=== PATIENT | female | born 1975 | race Caucasian/White ===

== ENCOUNTER 2019-05-05 21:34 | Emergency (ER) | payer MEDICARE, MEDICAID, SELFPAY ==
[2019-05-05 21:50] VITALS: PULSE 98; RESP 18; TEMP 36.6; O2SAT 93; BMI 43.6
--- NOTE | 2019-05-05 21:53 | ECG_ITS ---
Measurements Intervals [place] Rate: 88 P: 37 AL: 162 QRS: 59 QRSD: 85 T: 22 QT: 349 QTc: 424 SINUS RHYTHM NONSPECIFIC T-WAVE ABNORMALITY Compared to ECG 05/02/2017 18:27:14 No significant changes Electronically Signed On 05-06-2019 20:11:02 SEQUINS WINDER by Nakia Cortés M.D. [id number]
--- NOTE | 2019-05-05 22:25 | ED_ITS ---
Entered by Natalya Moon, acting as scribe for Carole Thakur MD May 05, 2019 21:34 HPI - SOB/Dyspnea General: Chief Complaint: Shortness of Breath/Dyspnea Stated Complaint: CHEST TIGHTNESS/SOB Time Seen by Provider: 05/05/19 22:20 Source: patient and EMS Mode of arrival: EMS Limitations: no limitations History of Present Illness: HPI Narrative: 44 y/o female presents to the ED with complaint of SOB and cough. Pt states she has had a cough since Saturday. She was seen by her PCP earlier today and given abx. MD elicited complaint: shortness of breath and cough Onset (ago): hour(s) Timing: constant Severity: mild Exacerbating factors: movement and coughing Associated symptoms: Deny abdominal pain, fever(s), nausea, polyuria or vomiting Review of Systems Const: Denies: fever or chills Eyes: Denies: change in vision ENMT: Denies: throat pain or mouth pain Resp: Reports: shortness of breath and non-productive cough GI: Denies: abdominal pain, nausea, vomiting or diarrhea : Denies: difficulty urinating Musc: Denies: back pain or joint pain Skin/Breast: Denies: rash Neuro: Denies: headache or behavioral changes Psych: Denies: depression Endo: Denies: excessive urination Fredis/Lymph: Denies: easy bruising All/Imm: Denies: hives PFSH ED PFSH: Statuses (acute, chronic, etc) shown below reflect problem list status as previously entered and may not be historically accurate Medical History (Updated 05/05/19 @ 23:12 by Carole Thakur MD) Bipolar disorder, in partial remission, most recent episode depressed (Acute) Nicotine dependence, cigarettes, uncomplicated (Acute) Post-traumatic stress disorder, chronic (Acute) Social History Smoking and tobacco status: current every day smoker Physical Exam Const: COMMON NORMALS: no apparent distress, oriented x3 and healthy appearing HENMT: COMMON NORMALS: normocephalic and external nose normal HEAD & SCALP: normocephalic NOSE: external nose normal Eye: COMMON NORMALS: PERRL PUPIL: Yes PERRL Neck/C-Spine: COMMON NORMALS: full ROM and no lymphadenopathy Chest: COMMONS NORMALS: inspection of chest normal Resp: COMMON NORMALS: normal respiratory effort and no use of accessory mu scles AUSCULTATION: wheezes (bilateral) Cardio: COMMON NORMALS: regular rate and regular rhythm RATE: regular rate RHYTHM: regular rhythm GI: COMMON NORMALS: normal to inspection, nondistended, normoactive bowel sounds, soft to palpation, non-tender and no masses PALPATION: Yes soft Back/Pelvis: THORACIC SPINE/UPPER BACK: Yes normal to inspection Extremity: COMMON NORMALS: normal to inspection, full ROM and normal capillary refill Neuro: COMMON NORMALS: oriented x3 Psych: COMMON NORMALS: mental status grossly normal and cooperative Skin: COMMON NORMALS: no rashes or lesions noted GENERAL SKIN EXAM: no rashes or lesions noted Course Vital Signs: Vital signs: Vital Signs Temperature 97.9 F 05/05/19 21:50 Pulse Rate 98 05/05/19 21:50 Respiratory Rate 18 05/05/19 21:50 Pulse Oximetry 93 05/05/19 21:50 MDM - SOB/Dyspnea MDM Narrative: Medical decision making narrative: Patient presents here with right lower lobe pneumonia. Patient chest pain is likely from this. Patient's white count here is normal and she is in no distress. We will place her on steroids along with doxycycline. She is stable for discharge and is to follow- up with her primary care doctor in 2 to 4 days return to the ER if worsening. Lab Data: Labs: Lab Results 05/05/19 05/05/19 05/05/19 Range/Units 22:30 22:30 22:30 WBC 7.4 (4.0-10.0) 10^3/ uL RBC 4.86 (4.1-5.3) 10^6/u L Hgb 14.1 (11.5-15.3) g/dL Hct 42.9 (37.0-47.0) % MCV 88.3 (81-99) fL MCH 29.0 (28.0-34.0) pg MCHC 32.9 (30.0-36.0) g/dL RDW 14.1 (12.1-15.1) % Plt Count 238 (130-400) 10^3/c mm MPV 9.5 (7.4-10.4) fL Neut % (Auto) 73.2 % Lymph % (Auto) 16.8 % [place] % (Auto) 9.3 % Eos % (Auto) 0.3 % Baso % (Auto) 0.1 % Neut # (Auto) 5.4 (1.8-7.7) 10^3/u L Lymph # (Auto) 1.2 (0.8-4.8) 10^3/u L [place] # (Auto) 0.7 (0.2-0.9) 10^3/u L Eos # (Auto) 0.0 (0.0-0.8) 10^3/u L Baso # (Auto) 0.0 (0.0-0.1) 10^3/u L Nucleated RBC % (a uto) 0 % Nucleated RBCs # 0.0 /100WBC Sodium 134 L (136-145) mmol/L Potassium 3.6 (3.5-5.1) mmol/L Chloride 97 L (98-107) mmol/L Carbon Dioxide 21 L (22-29) mmol/L Anion Gap 19.6 H (5-19) BUN 12 (6-20) mg/dL Creatinine 0.8 (0.5-0.9) mg/dL GFR Calculation 77.9 L (90-130) mL/min Glucose 113 H (74-109) mg/dL Calcium 9.6 (8.6-10.0) mg/Dl Total Bilirubin 0.2 (0.15-1.2) mg/dL AST 49 H (0-32) U/L ALT 43 H (0-33) U/L Alkaline Phosphata se 101 (35-105) IU/L Troponin T Baselin e 6 (0-10) ng/mL Total Protein 7.4 (6.6-8.7) g/dL Albumin 4.4 (3.5-5.2) g/dL Globulin 3.0 (1.3-4.6) g/dL Imaging Data^: CXR: Attestation: I personally reviewed and interpreted this imaging study as follows: My impression: rll pneumonia EKG Data^: EKG 1: Attestation: I personally reviewed and interpreted this EKG as follows: EKG Interpretation Date: 05/05/19 EKG interpretation time: 21:55 Interpretation: nsr hr [address] or t wave abnormalities qrs 85 qtc 395 EKG 2: Attestation: I personally reviewed and interpreted this EKG as follows: EKG Interpretation Date: 05/05/19 EKG interpretation time: 23:22 Interpretation: nsr hr [address] or t wave abnormalities qrs 80 qtc 402 Discharge Plan Discharge Patient Disposition: Home, Self-Care Clinical Impression: Community acquired pneumonia Qualifiers: Laterality: right Lung location: lower lobe of lung Qualified Code(s): J18.9 - Pneumonia, unspecified organism Condition: Stable Prescriptions: New prednisone 50 mg tablet 50 mg PO DAILY Qty: 5 RF: 0 doxycycline hyclate 100 mg tablet 100 mg PO BID 10 Days Qty: 20 RF: 0 No Action bupropion HCl [Wellbutrin XL] 300 mg tablet extended release 24 hr 300 mg PO QAM Qty: 30 RF: 2 buspirone 30 mg tablet 30 mg PO BID Qty: 60 RF: 2 hydroxyzine HCl 50 mg tablet 50 mg PO .Qhs Qty: 30 RF: 2 bupropion HCl [Wellbutrin XL] 150 mg tablet extended release 24 hr 150 mg PO QAM Qty: 30 RF: 2 escitalopram oxalate [Lexapro] 20 mg tablet 20 mg PO DAILY Qty: 30 RF: 2 clonazepam 1 mg tablet 1 mg PO BID PRN (Reason: anxiety) Qty: 60 RF: 2 Discharge Orders: Discharge Order (Routine); Ordered 05/05/19 Ordered By: Carole Thakur Referrals: Nneka Wiley MD [Primary Care Provider] - 4-7 days Discharge Diet: Advance as tolerated Discharge Activity: Resume usual activity Patient Instructions: Bacterial Pneumonia (ED) Coding Level of Care Code ED Title Coordinator for Chg Fwd Exam Problem Focused The documentation recorded by the Red christensen Ashley, accurately reflects the service I personally performed and the decisions made by Ofe arcos Korby, MD May 05, 2019 21:34
--- NOTE | 2019-05-05 22:49 | XR_ITS ---
WS: [id number] CHEST XRAY TECHNIQUE: Portable chest. CLINICAL INFORMATION: cough COMPARISON: May 02, 2017 FINDINGS: Heart: Normal cardiac silhouette. Lungs: Lungs are clear. No consolidation or pleural effusion. Bones: Normal visualized bony structures. XR/XR chest 1V portable [id number] IMPRESSION: No acute chest findings
[2019-05-05 22:54] LABS: Basophils % 0.1 %; Eosinophils % 0.3 %; Hematocrit 42.9 % (37.0-47.0); Hemoglobin 14.1 g/dL (11.5-15.3); Lymphocytes # 1.2 10^3/uL (0.8-4.8); Lymphocytes % 16.8 %; Mean Corpuscular HGB Conc 32.9 g/dL (30.0-36.0); Mean Corpuscular Volume 88.3 fL (81-99); Mean Platelet Volume 9.5 fL (7.4-10.4); Monocytes # 0.7 10^3/uL (0.2-0.9); Monocytes % 9.3 %; Neutrophils # 5.4 10^3/uL (1.8-7.7); Neutrophils % 73.2 %; Nucleated Red Blood Cells % 0 %; Platelet Count 238 10^3/cmm (130-400); Red Blood Count 4.86 10^6/uL (4.1-5.3); Red Cell Distribution Width 14.1 % (12.1-15.1); White Blood Count 7.4 10^3/uL (4.0-10.0)
[2019-05-05 22:59] LABS: Alanine Aminotransferase 43 U/L (0-33); Albumin Level 4.4 g/dL (3.5-5.2); Alkaline Phosphatase 101 IU/L (35-105); Anion Gap 19.6 (5-19); Aspartate Amino Transferase 49 U/L (0-32); Blood Urea Nitrogen 12 mg/dL (6-20); Calcium 9.6 mg/Dl (8.6-10.0); Carbon Dioxide 21 mmol/L (22-29); Chloride 97 mmol/L (98-107); Glomerular Filtration Rate 77.9 mL/min (90-130); Glucose 113 mg/dL (74-109); Potassium 3.6 mmol/L (3.5-5.1); Sodium 134 mmol/L (136-145); Total Bilirubin 0.2 mg/dL (0.15-1.2); Total Protein 7.4 g/dL (6.6-8.7)
[2019-05-05 23:00] LABS: Troponin(5th) Baseline 6 ng/mL (0-10)
[2019-05-05 23:28] VITALS: BP 164/81; PULSE 70; RESP 18; O2SAT 98
[2019-05-05] MEDS: ipratropium-albuterol 3 mL Neb INHALATION (23:38)
[2019-05-05 23:39] VITALS: PULSE 90; RESP 18; O2SAT 98
--- NOTE | 2019-05-06 01:58 | ECG_ITS ---
Measurements Intervals [place] Rate: 84 P: 39 PA: 166 QRS: 62 QRSD: 80 T: 40 QT: 361 QTc: 427 SINUS RHYTHM NONSPECIFIC T-WAVE ABNORMALITY Compared to ECG 05/02/2017 18:27:14 No significant changes Electronically Signed On 05-06-2019 20:11:06 MASH TUB COOKER by Nakia Cortés M.D. [id number] f
== END 2019-05-05 23:50 | disposition home or self-care (01) ==
PROVIDERS: Emergency Provider Emergency Medicine; Family Provider Internal Medicine; PCP Internal Medicine
DX: J18.8 Other pneumonia, unspecified organism (principal); F17.210 Nicotine dependence, cigarettes, uncomplicated
CPT/HCPCS: 36415; 71045; 80053; 84484; 85025; 93005; 94640; 96372; 99282; J2930

== ENCOUNTER → 2019-06-11 14:50 | Outpatient (BNVA) | payer MEDICARE, MEDICAID, SELFPAY | PROVIDERS: Family Provider Internal Medicine; PCP Internal Medicine; Visit Provider Nurse Practitioner Family | DX: R06.02 Shortness of breath (principal); I10 Essential (primary) hypertension | CPT/HCPCS: 80048; 83880 ==

== ENCOUNTER → 2019-07-24 07:44 | Outpatient (BNVA) | payer MEDICARE, MEDICAID, SELFPAY | PROVIDERS: Family Provider Internal Medicine; PCP Internal Medicine; Visit Provider Nurse Practitioner | DX: F43.12 Post-traumatic stress disorder, chronic (principal); F31.75 Bipolar disorder, in partial remission, most recent episode depressed | CPT/HCPCS: 99213 ==

== ENCOUNTER 2019-09-11 07:48 | Outpatient (CLI) | payer MEDICARE, MEDICAID, SELFPAY ==
--- NOTE | 2019-09-11 08:25 | ECG_ITS ---
NAME OF STUDY: LEXISCAN SESTAMIBI STRESS TEST INDICATION: Chest Pain NOTE: Please note that this is the electrocardiogram portion of the Lexiscan/Sestamibi stress test. The perfusion scan will be documented separately. DATA: Baseline heart rate was 81 beats per minute. Baseline blood pressure was 137/77 millimeters of mercury. Target heart rate was 176. Maximum heart rate achieved was 112. which was 63 % of the predicted target heart rate. Maximum blood pressure was 167/89 millimeters of mercury. The reason for ending the test was completion of the protocol. The patient did not experience any symptoms. ELECTROCARDIOGRAM: BASELINE: Sinus rhythm. Normal axis. Otherwise, no ST-T changes suggestive of ischemia noted. No arrhythmia noted. EXERCISE: After Lexiscan injection, no ST-T changes suggestive of ischemic noted. No arrhythmia noted. CONCLUSION: Please note due to baseline abnormality of the EKG specificity and sensitivity of the EKG portion of LexiScan MIBI stress test will be low 1. EKG not suggestive of ischemia 2. Lexiscan injection unremarkable. 3. Perfusion scan will be documented separately. Electronically Signed On 09-16-2019 18:08:45 CDT by Nakia Cortés M.D. [id number]
--- NOTE | 2019-09-11 08:26 | NMCV_ITS ---
NM brain perf SPECT r/s* [id number] Cornelia William Age: 44 Gender: F : 1975 Exam Date: 09/11/2019 09:15 Ordering Phys: Misty Smith Technologist: RICARDO Rojas Exam Location: [facility] Indications: ANGINA PECTORIS STRESS TEST Please see separate stress test report in [facility] for full findings IMAGE PROTOCOL Rest/Stress 1 Lexiscan Day Radiopharmaceutical Dose (mCi) Administration Site Administered by Rest: Tc-99m 10.2 IV RICARDO Patel Sestamibi Stress:Tc-99m 32.9 IV RICARDO Patel Sestamibi Rest: 11-Sep-2019 60 Discovery 630 Stress: 11-Sep-2019 30 Discovery 630 0.4mg Lexiscan. Images obtained in supine and prone position. SPECT RESULTS Technical Quality: Excellent Raw Data Analysis: Normal Image Corrections: No attenuation or motion correction applied Summed Stress Score: 2 Summed Rest Score: 3 Summed Difference Score: 0 PERFUSION FINDINGS Small areas of slightly decreased tracer uptake in the anterolateral, inferolateral and apical regions with no significant reversibility FUNCTIONAL RESULTS (calculated via Gated SPECT) Stress Image LV EF (%): 85 Stress EDV (mL):72 TID: 1.08 Stress ESV (mL):11 FUNCTIONAL FINDINGS: Segmental wall motion analysis revealing no gross wall motion normalities IMPRESSIONS 1. Myocardial perfusion imaging revealing small areas of slightly decreased persistent tracer uptake in the anterolateral, inferolateral and apical regions, most likely represent attenuation artifacts. 2. Normal LV ejection fraction of 85%. 3. LV wall motion analysis revealing no gross wall motion normalities. 4. Normal LV volume. No significant coronary ischemia, based on the above findings Dr More Lemos MD FACC (Electronically Signed) Final Date: 11 Sep 2019 13:28 S
[2019-09-11 10:26] VITALS: BP 130/77; PULSE 100
[2019-09-11] MEDS: regadenoson 0.4 Mg/5 ml Syringe IVP (10:26)
== END 2019-09-11 07:49 | disposition home or self-care (01) ==
LOC: RAD 07:53
PROVIDERS: PCP Family Medicine; Visit Provider Nurse Practitioner Family
DX: I20.8 Other forms of angina pectoris (principal); R07.9 Chest pain, unspecified
CPT/HCPCS: 78452; 93017; A9500; J2785

== ENCOUNTER → 2019-10-16 08:03 | Outpatient (BNVA) | payer MEDICARE, MEDICAID, SELFPAY | PROVIDERS: PCP Family Medicine; Visit Provider Nurse Practitioner | DX: F43.12 Post-traumatic stress disorder, chronic (principal); F31.75 Bipolar disorder, in partial remission, most recent episode depressed | CPT/HCPCS: 99213 ==

== ENCOUNTER → 2019-11-19 10:00 | Outpatient (BNVA) | payer MEDICARE, MEDICAID, SELFPAY | PROVIDERS: PCP Family Medicine; Visit Provider Family Medicine | DX: E78.5 Hyperlipidemia, unspecified (principal); I10 Essential (primary) hypertension; E66.01 Morbid (severe) obesity due to excess calories; J43.1 Panlobular emphysema; R20.0 Anesthesia of skin; R20.2 Paresthesia of skin; F17.210 Nicotine dependence, cigarettes, uncomplicated; Z68.42 Body mass index [BMI] 45.0-49.9, adult | CPT/HCPCS: 80053; 80061; 82043; 82306; 85025 ==

== ENCOUNTER → 2020-01-13 08:07 | Outpatient (BNVA) | payer MEDICARE, MEDICAID, SELFPAY | PROVIDERS: PCP Family Medicine; Visit Provider Nurse Practitioner | DX: F43.12 Post-traumatic stress disorder, chronic (principal); F31.75 Bipolar disorder, in partial remission, most recent episode depressed | CPT/HCPCS: 99214 ==

== ENCOUNTER 2020-07-13 15:12 | Outpatient (CLI) | payer MEDICARE, MEDICAID, SELFPAY ==
--- NOTE | 2020-07-13 15:24 | XR_ITS ---
WS: [id number] Exam: XR hip RT 2-3V wo/w pel* [id number] Date/Time of Exam: 07/13/2020 3:26 PM Reason For Exam: HIP PAIN RIGHT Comparison 10/16/2017. Findings: No fractures or bone anomalies are noted. No unusual soft tissue masses or calcifications are seen. The bony elements of the hip are in adequate alignment. XR/XR hip RT 2-3V wo/w pel* [id number] IMPRESSION: Negative right hip.
== END 2020-07-13 15:13 | disposition home or self-care (01) ==
PROVIDERS: PCP Nurse Practitioner Family; Visit Provider Nurse Practitioner Family
DX: M25.551 Pain in right hip (principal)
CPT/HCPCS: 73502

== ENCOUNTER 2020-07-29 10:43 | Outpatient (CLI) | payer MEDICARE, MEDICAID, SELFPAY ==
--- NOTE | 2020-07-29 10:50 | MR_ITS ---
WS: [id number] MRI RIGHT HIP without CONTRAST. COMPARISON: Radiograph 07/13/2020 Multiplanar, multisequence imaging is performed without contrast. Symmetric appearance involving the bones of the pelvis and hips. Small amount of cortical irregularit y involving the femoral heads bilaterally. No marrow edema or fracture. No evidence for joint effusio n or trochanteric bursitis. No muscle edema or atrophy. There is a very small amount of increased sig nal in the anterior labrum. Suspicious for but inconclusive for labral tear. Muscles are symmetric bilaterally. No fluid in the pelvis. No erosions or signal abnormalities at the SI joints. MR/MR hip RT wo con* [id number] IMPRESSION: 1. Mild cortical irregularity involving both femoral heads without marrow joyce a. 2. No evidence for bursitis. 3. Tiny amount of increased signal in the RIGHT anterior labrum. Could represe nt a very small labral tear. Study is inconclusive due to quality due to body h abitus. There is no joint effusion or marrow edema.
== END 2020-07-29 10:44 | disposition home or self-care (01) ==
LOC: RADSHAW 10:47
PROVIDERS: PCP Nurse Practitioner Family; Visit Provider Nurse Practitioner Family
DX: M25.551 Pain in right hip (principal)
CPT/HCPCS: 73721

== ENCOUNTER → 2020-09-06 08:18 | Outpatient (BNVA) | payer MEDICARE, MEDICAID, SELFPAY | PROVIDERS: PCP Nurse Practitioner Family; Visit Provider Nurse Practitioner | DX: F31.75 Bipolar disorder, in partial remission, most recent episode depressed (principal); F43.12 Post-traumatic stress disorder, chronic | CPT/HCPCS: 99214 ==

== ENCOUNTER → 2020-11-30 07:18 | Outpatient (BNVA) | payer MEDICARE, MEDICAID, SELFPAY | PROVIDERS: PCP Nurse Practitioner Family; Visit Provider Nurse Practitioner | DX: F43.12 Post-traumatic stress disorder, chronic (principal); F31.75 Bipolar disorder, in partial remission, most recent episode depressed | CPT/HCPCS: 99214 ==

== ENCOUNTER → 2021-04-07 07:47 | Outpatient (BNVA) | payer MEDICARE, MEDICAID, SELFPAY | PROVIDERS: PCP Nurse Practitioner Family; Visit Provider Nurse Practitioner | DX: F43.12 Post-traumatic stress disorder, chronic (principal); F31.75 Bipolar disorder, in partial remission, most recent episode depressed | CPT/HCPCS: 99214 ==

== ENCOUNTER → 2021-06-05 09:55 | Outpatient (BNVA) | payer MEDICARE, MEDICAID, SELFPAY | PROVIDERS: PCP Nurse Practitioner Family; Visit Provider Internal Medicine Cardiovascular Disease | DX: I10 Essential (primary) hypertension (principal); I20.8 Other forms of angina pectoris; E78.5 Hyperlipidemia, unspecified; R06.02 Shortness of breath | CPT/HCPCS: 80048 ==

== ENCOUNTER 2021-10-12 10:55 | Outpatient (CLI) | payer OTHER, MEDICAID, SELFPAY ==
--- NOTE | 2021-10-12 11:08 | XR_ITS ---
WS: [id number] Exam: XR chest 2V* [id number] Date/Time of Exam: 10/12/2021 11:08 AM Reason For Exam: TOBACCO SMOKER/COUGH/MILD DYSPNEA/COPD Comparison 05/05/2019. Findings: The lungs are clear and fully expanded. Costophrenic angles are sharp. No infiltrates. Bronchovascula r relief appears normal. Cardiac silhouette is unremarkable. Bony elements are intact. XR/XR chest 2V* [id number] IMPRESSION: Unremarkable chest radiograph.
== END 2021-10-12 10:56 | disposition home or self-care (01) ==
LOC: RAD 10:58
PROVIDERS: PCP Nurse Practitioner Family; Visit Provider Nurse Practitioner Family
DX: J44.9 Chronic obstructive pulmonary disease, unspecified (principal); R05.9 Cough, unspecified; R06.00 Dyspnea, unspecified; F17.200 Nicotine dependence, unspecified, uncomplicated
CPT/HCPCS: 71046

== ENCOUNTER 2021-12-06 08:29 | Outpatient (CLI) | payer MEDICARE, MEDICAID, SELFPAY ==
--- NOTE | 2021-12-06 08:43 | MM_ITS ---
WS: [id number] Bilateral screening 3D tomosynthesis digital mammogram, 12/06/2021 Clinical Data: SCREEN Comparison: 06/20/2018, 03/01/2017, 11/04/2015. Findings: The breast parenchymal pattern shows fat replacement. No spiculated masses or clustered calcification s are seen. There are no secondary signs of carcinoma. MM/[place] [id number] Impression: 1. Negative bilateral mammogram unchanged. 2. Recommend annual screening mammograms. BIRADS: 1-Negative FOLLOW UP: 1 Year Follow-up The CAD purchase order checker was used.
== END 2021-12-06 08:30 | disposition home or self-care (01) ==
LOC: RAD 08:30
PROVIDERS: PCP Nurse Practitioner Family; Visit Provider Nurse Practitioner Family
DX: Z12.31 Encounter for screening mammogram for malignant neoplasm of breast (principal)
CPT/HCPCS: 77063; 77067

== ENCOUNTER 2021-12-13 20:00 | Outpatient (CLI) | payer MEDICARE, MEDICAID, SELFPAY | END 2021-12-13 20:01 | disposition home or self-care (01) | LOC: SLEEP 12-14 11:31 | PROVIDERS: PCP Nurse Practitioner Family; Visit Provider Nurse Practitioner Family | DX: G47.10 Hypersomnia, unspecified (principal); G47.33 Obstructive sleep apnea (adult) (pediatric) | CPT/HCPCS: 95810 ==

== ENCOUNTER → 2022-01-04 14:51 | Outpatient (BNVA) | payer MEDICARE, MEDICAID, SELFPAY | PROVIDERS: PCP Nurse Practitioner Family; Visit Provider Internal Medicine Cardiovascular Disease | DX: R06.02 Shortness of breath (principal); I10 Essential (primary) hypertension; F17.210 Nicotine dependence, cigarettes, uncomplicated | CPT/HCPCS: 99214 ==

== ENCOUNTER → 2023-01-02 14:30 | Outpatient (BNVA) | payer MEDICARE, MEDICAID, SELFPAY | PROVIDERS: PCP Family Medicine; Visit Provider Internal Medicine Cardiovascular Disease | DX: R06.02 Shortness of breath (principal); I10 Essential (primary) hypertension; F17.210 Nicotine dependence, cigarettes, uncomplicated | CPT/HCPCS: 99214 ==

== ENCOUNTER 2023-04-17 09:57 | Outpatient (CLI) | payer MEDICARE, MEDICAID, SELFPAY ==
[2023-04-17 10:18] VITALS: PULSE 98; RESP 18; O2SAT 96
[2023-04-17] MEDS: albuterol 2.5 mg/3 mL Neb INHALATION (10:18)
[2023-04-17 10:23] VITALS: PULSE 99
== END 2023-04-17 09:58 | disposition home or self-care (01) ==
LOC: RT 09:57
PROVIDERS: PCP Family Medicine; Visit Provider Family Medicine
DX: J44.9 Chronic obstructive pulmonary disease, unspecified (principal); R94.2 Abnormal results of pulmonary function studies
CPT/HCPCS: 94060; J7613

== ENCOUNTER 2023-06-23 18:09 | Emergency (ER) | payer MEDICARE, SELFPAY ==
[2023-06-23 18:14] VITALS: BP 120/72; PULSE 94; TEMP 36.7; O2SAT 95; BMI 49.8
[2023-06-23] MEDS: sodium chloride 0.9% 1,000 ML 999 ML IV (18:35)
--- NOTE | 2023-06-23 18:40 | ECG_ITS ---
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 Measurements Intervals [place] Rate: 87 P: 31 [place]: 164 QRS: 46 QRSD: 88 T: 37 QT: 390 QTc: 472 Interpretive Statements SINUS RHYTHM LOW QRS VOLTAGE IN PRECORDIAL LEADS [QRS DEFLECTION < 1.0 mV IN CHEST LEADS] Compared to ECG 05/05/2019 23:22:25 Low QRS voltage now present T-wave abnormality no longer present Electronically Signed On 06-24-2023 8:47:41 [employer]IOR [employer]IST by Marcelo Carmona M.D. [id number]
[2023-06-23 19:03] LABS: Basophils % 0.3 %; Eosinophils # 0.2 10^3/uL (0.0-0.8); Eosinophils % 2.4 %; Hematocrit 37.4 % (36-47); Lymphocytes # 3.9 10^3/uL (0.8-4.8); Lymphocytes % 42.9 %; Mean Corpuscular HGB Conc 32.4 g/dL (30-55); Mean Corpuscular Hemoglobin 29.3 pg (27-33); Mean Corpuscular Volume 90.6 fl (85-98); Mean Platelet Volume 8.6 fL (7.4-10.4); Monocytes # 0.6 10^3/uL (0.2-0.9); Monocytes % 6.6 %; Neutrophils # 4.28 10^3/uL (1.8-7.7); Neutrophils % 47.5 %; Nucleated Red Blood Cells % 0 %; Platelet Count 279 10^3/cmm (157-399); Red Blood Count 4.13 10^6/uL (3.85-5.65); Red Cell Distribution Width 13.2 % (12.1-15.1); White Blood Count 9.03 10^3/uL (3.29-11.43)
[2023-06-23 19:23] LABS: Alanine Aminotransferase 38 U/L (0-33); Alkaline Phosphatase 110 U/L (35-105); Anion Gap 12.9 (5-19); Aspartate Amino Transferase 30 U/L (0-32); Blood Urea Nitrogen 11 mg/dL (6-20); Calcium 8.5 mg/dL (8.5-10.5); Carbon Dioxide 26 mmol/L (22-29); Chloride 99 mmol/L (98-107); Creatinine Clr Calc Pharmacy 92.7939; Globulin 2.8 g/dL (1.3-4.6); Glomerular Filtration Rate 59.2 mL/min (90-130); Glucose 106 mg/dL (65-115); Magnesium 1.9 mg/dL (1.7-2.3); Osmolality Calculated 278 mOsm/kg (285-295); Potassium 3.9 mmol/L (3.5-5.1); Sodium 134 mmol/L (136-145); Total Bilirubin 0.2 mg/dL (0.15-1.2); Total Protein 6.8 g/dL (6.6-8.7)
[2023-06-23 19:25] LABS: Alcohol Level < 10 mg/dL (0-10)
[2023-06-23 19:28] LABS: HCG, Serum Qual Negative (Negative)
[2023-06-23 19:38] LABS: Troponin(5th) Baseline < 6 ng/L (0-10)
[2023-06-23 19:45] LABS: NT Pro B Type Natriuretic Pept < 36 pg/mL (0-125)
--- NOTE | 2023-06-23 19:48 | ED_ITS ---
HPI - Weakness 2 General: Chief complaint: Weakness Stated complaint: HYPOTENSION Time Seen by Provider: 06/23/23 18:11 History of Present Illness: 48-year-old female tells me she has a hi story of heart failure. She presents after syncopal episode at home. She was on the porch, and family was barbecuing. She had taken 2 hits of marijuana prior. notes that for short period of time, she was slumped over, experienced labored respirations, and was not arousable. He was able to arouse her. She did not fall and hit her head. She is not complaining of a headache. She does feel short of breath, and has some chest pressure. She has not had that type of reaction to marijuana before. She has not had previous episodes of syncope. Associated symptoms: Reports chest pain (Pressure); Denies chills, confusion, fever(s), headache(s), nausea or vomiting Review of Systems 2 Const: Denies: fever(s), chills or body aches Eyes: Denies: change in vision Card: Reports: chest pain (Pressure); Denies: palpitations Resp: Reports: dyspnea; Denies: productive cough, non-productive cough or wheezing GI: Denies: abdominal pain, nausea, vomiting, diarrhea or hematochezia : Denies: difficulty voiding Skin/Breast: Denies: rash Neuro: Denies: headache(s), sensory changes, dizziness, confusion, Slurred speech present or seizure-like activity PFSH ED 2 PFSH: Medical History On combination antipsychotic drug therapy Shortness of breath COPD (chronic obstructive pulmonary disease) Emphysema, unspecified Hypothyroid GERD (gastroesophageal reflux disease) Overactive bladder Angina at rest Post-traumatic stress disorder, chronic Nicotine dependence, cigarettes, uncomplicated Bipolar disorder, in partial remission, most recent episode depressed Surgical History H/O section H/O knee surgery H/O carpal tunnel repair History of cholecystectomy History of hysterectomy for cancer due to endometrial cancer History of shoulder surgery Family History Father Diabetes Hyperlipidemia Hypertension Sister Hyperlipidemia Hypertension Lung disease Psychiatric illness Mother Hyperlipidemia Hypertension Stroke Denies family history of Dementia Social History Smoking and tobacco/nicotine status: current every day tobacco/nicotine user cigarettes Packs smoked per day: 0.75 Alcohol intake: current Alcohol intake frequency: holidays/special occasions only Substance/Drug Use: never Physical Exam 2 Const: COMMON NORMALS: no acute distress GENERAL APPEARANCE: cooperative; not ill appearing and not frail appearing HENMT: COMMON NORMALS: normocephalic, atraumatic and Normal external nose present HEAD & SCALP: normocephalic and atraumatic FACE & SINUS: normal facial exam and face symmetric NOSE: Normal external nose present Eye: COMMON NORMALS: Equal, round and reactive pupils present and EOMs intact bilaterally PUPIL: Yes Equal, round and reactive pupils present Neck/C-Spine: GENERAL: Yes trachea midline Chest: CHEST: Yes Symmetrical chest wall rise Resp: COMMON NORMALS: normal respiratory effort, No retractions, No use of accessory muscles and clear to auscultation bilaterally AUSCULTATION: clear to auscultation bilaterally Cardio: COMMON NORMALS: regular rate and regular rhythm RATE: regular rate RHYTHM: regular rhythm GI: COMMON NORMALS: Normal to inspection, nondistended, normoactive bowel sounds present Extremity: COMMON NORMALS: no pedal edema Neuro: ANUSHA COMA SCALE: document GCS findings Anusha coma scale eye opening: Spontaneous [place] coma scale verbal response: Orientated Anusha coma scale motor response: Obey commands Anusha coma scale total score: 15 S ENSORY EXAM: Yes extremities (intact) Psych: COMMON NORMALS: speech normal SPEECH: Yes normal speech Skin: COMMON NORMALS: no rashes or lesions noted GENERAL SKIN EXAM: no rashes or lesions noted Course 2 Vital Signs: Vital signs: Vital Signs Temperature 98.0 F 06/23/23 18:14 Pulse Rate 88 06/23/23 21:44 Respiratory Rate 16 06/23/23 21:44 Blood Pressure 147/92 06/23/23 21:44 Pulse Oximetry 95 06/23/23 21:44 Oxygen Delivery Me thod Room Air 06/23/23 20:19 MDM - Weakness Medical Decision Making Vital signs are quite good here. She is mildly drowsy, but completely appropriate on examination otherwise, and answers all questions. Patient is now getting up to urinate. She is a liter of fluid. She states that she still feels woozy . But somewhat improved. CBC is normal. Creatinine is 1. BMP is otherwise not remarkable. Delta troponin is 0.6. Alcohol is nondetectable. Her vitals are good. She will be allowed discharge. Lab Data 06/23/23 18:45 06/23/23 18:45 Laboratory Results WBC 9.03 10^3/uL (3.29-11.43) 06/23/23 18:45 RBC 4.13 10^6/uL (3.85-5.65) 06/23/23 18:45 Hgb 12.10 g/dL (11.27-16.99) 06/23/23 18:45 Hct 37.4 % (36-47) 06/23/23 18:45 MCV 90.6 fl (85-98) 06/23/23 18:45 MCH 29.3 pg (27-33) 06/23/23 18:45 MCHC 32.4 g/dL (30-55) 06/23/23 18:45 RDW 13.2 % (12.1-15.1) 06/23/23 18:45 Plt Count 279 10^3/cmm (157-399) 06/23/23 18:45 MPV 8.6 fL (7.4-10.4) 06/23/23 18:45 Neut % (Auto) 47.5 % 06/23/23 18:45 Lymph % (Auto) 42.9 % 06/23/23 18:45 [place] % (Auto) 6.6 % 06/23/23 18:45 Eos % (Auto) 2.4 % 06/23/23 18:45 Baso % (Auto) 0.3 % 06/23/23 18:45 Neut # (Auto) 4.28 10^3/uL (1.8-7.7) 06/23/23 18:45 Lymph # (Auto) 3.9 10^3/uL (0.8-4.8) 06/23/23 18:45 [place] # (Auto) 0.6 10^3/uL (0.2-0.9) 06/23/23 18:45 Eos # (Auto) 0.2 10^3/uL (0.0-0.8) 06/23/23 18:45 Baso # (Auto) 0.0 10^3/uL (0.0-0.1) 06/23/23 18:45 Nucleated RBC % (auto) 0 % 06/23/23 18:45 Nucleated RBCs # 0.0 /100WBC 06/23/23 18:45 Sodium 134 mmol/L (136-145) L 06/23/23 18:45 Potassium 3.9 mmol/L (3.5-5.1) 06/23/23 18:45 Chloride 99 mmol/L (98-107) 06/23/23 18:45 Carbon Dioxide 26 mmol/L (22-29) 06/23/23 18:45 Anion Gap 12.9 (5-19) 06/23/23 18:45 BUN 11 mg/dL (6-20) 06/23/23 18:45 Creatinine 1.0 mg/dL (0.5-0.9) H 06/23/23 18:45 GFR Calculation 59.2 mL/min (90-130) L 06/23/23 18:45 Glucose 106 mg/dL (65-115) 06/23/23 18:45 Calculated Osmolality 278 mOsm/kg (285-295) L 06/23/23 18:45 Calcium 8.5 mg/dL (8.5-10.5) 06/23/23 18:45 Magnesium 1.9 mg/dL (1.7-2.3) 06/23/23 18:45 Total Bilirubin 0.2 mg/dL (0.15-1.2) 06/23/23 18:45 AST 30 U/L (0-32) 06/23/23 18:45 ALT 38 U/L (0-33) H 06/23/23 18:45 Alkaline Phosphatase 110 U/L (35-105) H 06/23/23 18:45 Troponin T Baseline < 6 ng/L (0-10) 06/23/23 18:45 Troponin T 120 Minute 6.58 ng/L (0-10) 06/23/23 20:32 Delta Troponin T 0.20541 ABS# (0-10) 06/23/23 20:32 NT-Pro-B Natriuret Pep < 36 pg/mL (0-125) 06/23/23 18:45 Total Protein 6.8 g/dL (6.6-8.7) 06/23/23 18:45 Albumin 4.0 g/dL (3.5-5.2) 06/23/23 18:45 Globulin 2.8 g/dL (1.3-4.6) 06/23/23 18:45 HCG, Qual Negative (Negative) 06/23/23 18:45 Urine Color Colorless (Yellow) 06/23/23 21:36 Urine Appearance Clear (CLEAR) 06/23/23 21:36 Urine pH 5 (5-7) 06/23/23 21:36 Ur Specific Floral 1.010 (1.005-1.030) 06/23/23 21:36 Urine Protein Neg (Negative) 06/23/23 21:36 Urine Glucose (UA) Norm (Normal) 06/23/23 21:36 Urine Ketones Negative (Negative) 06/23/23 21:36 Urine Blood Neg (Negative) 06/23/23 21:36 Urine Nitrate Negative (Negative) 06/23/23 21:36 Urine Bilirubin Neg (Negative) 06/23/23 21:36 Urine Urobilinogen Norm mg/dL (Negative) 06/23/23 21:36 Ur Leukocyte Esterase Negative (Negative) 06/23/23 21:36 Urine Opiates Screen Negative ng/mL (Negative) 06/23/23 21:36 Ur Barbiturates Screen Negative ng/mL (Negative) 06/23/23 21:36 Ur Phencyclidine Scrn Negative ng/mL (Negative) 06/23/23 21:36 Ur Amphetamines Screen Negative ng/mL (Negative) 06/23/23 21:36 U Benzodiazepines Scrn Negative ng/mL (Negative) 06/23/23 21:36 Urine Cocaine Screen Negative ng/mL (Negative) 06/23/23 21:36 U Marijuana (THC) Screen Negative ng/mL (Negative) 06/23/23 21:36 Ethyl Alcohol < 10 mg/dL (0-10) 06/23/23 18:45 All radiology interpretation(s) finalized by discharge Discharge Plan Discharge Patient Disposition: Home Clinical Impression: Syncope Condition: Stable Prescriptions: No Action aspirin [Adult Low Dose Aspirin] 81 mg tablet,delayed release (DR/EC) 81 mg PO DAILY All Day Allergy (cetirizine) 10 mg capsule 10 mg PO DAILY montelukast 10 mg tablet 10 mg PO DAILY albuterol sulfate [Ventolin HFA] 90 mcg/actuation HFA aerosol inhaler 2 puff INHALATION Q6H PRN cholecalciferol (vitamin D3) 2,000 unit tablet 2,000 unit PO BID ascorbic acid (vitamin C) 500 mg capsule 1,000 mg PO DAILY albuterol sulfate 2.5 mg /3 mL (0.083 %) solution for nebulization 2.5 mg INHALATION Q4H PRN meloxicam 15 mg tablet 15 mg PO DAILY oxybutynin chloride 5 mg tablet extended release 24hr 20 mg PO DAILY sertraline [Zoloft] 50 mg tablet 50 mg PO DAILY Qty: 90 0RF hydroxyzine HCl 50 mg tablet 100 mg PO .Qhs Qty: 180 0RF Rx Instructions: 1-2 tablets at bedtime as needed for sleep. clonazepam 1 mg tablet 1 mg PO BID PRN (Reason: anxiety) Qty: 60 2RF buspirone 30 mg tablet 30 mg PO BID Qty: 180 0RF bupropion HCl [Wellbutrin XL] 150 mg tablet extended release 24 hr 150 mg PO QAM Qty: 90 0RF bupropion HCl [Wellbutrin XL] 300 mg tablet extended release 24 hr 300 mg PO QAM Qty: 90 0RF aripiprazole [Abilify] 5 mg tablet 5 mg PO DAILY Qty: 90 0RF Trelegy Ellipta 100-62.5-25 mcg blister with device 1 inh inhalation DAILY Rybelsus 3 mg tablet 3 mg PO DAILY fluconazole [Diflucan] 150 mg tablet 150 mg PO DAILY 3 Days Qty: 3 1RF omeprazole 20 mg capsule,delayed release(DR/EC) 20 mg PO DAILY Qty: 30 5RF gabapentin 100 mg capsule 100 mg PO TID Qty: 90 5RF Rx Instructions: 1 in the am and 2 in the pm simvastatin 20 mg tablet 20 mg PO DAILY Qty: 90 2RF lisinopril 10 mg tablet 10 mg PO BID Qty: 180 2RF potassium chloride [Klor-Con 10] 10 mEq tablet extended release 10 meq PO DAILY Qty: 90 3RF furosemide 40 mg tablet 40 mg PO DAILY Qty: 90 3RF isosorbide mononitrate 30 mg tablet extended release 24 hr 15 mg PO BID Qty: 90 2RF Discharge Orders: Discharge ED (Routine); Ordered 06/23/23 Ordered By: Alcon Gonzalez Referrals: Cassie Shelton DO [Primary Care Provider] - 4-7 days Patient Instructions: Syncope (ED), Opioid Safety, Pain Management Activity Restrictions/Additional Instructions: Return for repeated episodes of syncope or passing out, significant chest discomfort, shortness of breath, other concerning symptoms. Relative rest for the next 24 hours. Watch for fevers. See your doctor this week. Coding Level of Care Code ED [employer] for [employer]
[2023-06-23 20:19] VITALS: BP 126/68; PULSE 87; RESP 18; O2SAT 97
[2023-06-23 20:54] LABS: Troponin 5 2HR 6.58 ng/L (0-10); Troponin 5 2HR Delta 0.58001 ABS# (0-10)
[2023-06-23 21:43] LABS: Add Urine Microscopic? NO; Charge for UA Resulting for Rev
[2023-06-23 21:44] VITALS: BP 147/92; PULSE 88; RESP 16; O2SAT 95
[2023-06-23 21:45] LABS: Bilirubin Urine Neg (Negative); Blood Urine Neg (Negative); Glucose Urine UA Norm (Normal); Ketones Urine Negative (Negative); Leukocyte Esterase Urine Negative (Negative); Nitrate Urine Negative (Negative); Protein Urine Neg (Negative); Urine Appearance Clear (CLEAR); Urine Color Colorless (Yellow); Urobilinogen Urine Norm (Negative); pH Urine 5 (5-7)
[2023-06-23 21:53] LABS: Amphetamines Screen Urine Negative (Negative); Barbiturates Screen Urine Negative (Negative); Benzodiazepines Screen Urine Negative (Negative); Cocaine Screen Urine Negative (Negative); Opiate Screen Urine Negative (Negative); PCP Screen Urine Negative (Negative); THC Screen Urine Negative (Negative)
== END 2023-06-23 21:46 | disposition home or self-care (01) ==
PROVIDERS: Emergency Provider Emergency Medicine; PCP Family Medicine
DX: R55 Syncope and collapse (principal); Z79.82 Long term (current) use of aspirin; F17.210 Nicotine dependence, cigarettes, uncomplicated; J44.9 Chronic obstructive pulmonary disease, unspecified
CPT/HCPCS: 36415; 80053; 80306; 80307; 81003; 83735; 83880; 84484; 84703; 85025; 93005; 99284; J7030

== ENCOUNTER → 2023-07-22 11:51 | Outpatient (BNVA) | payer MEDICARE, SELFPAY | PROVIDERS: PCP Family Medicine; Referring Provider Family Medicine; Visit Provider Internal Medicine Pulmonary Disease | DX: R06.02 Shortness of breath (principal); J43.1 Panlobular emphysema | CPT/HCPCS: 36415; 71046; 82785; 86003; 99204 ==

== ENCOUNTER → 2023-07-23 08:58 | Outpatient (BNVA) | payer MEDICARE, SELFPAY | PROVIDERS: PCP Family Medicine; Visit Provider Nurse Practitioner Family | DX: I10 Essential (primary) hypertension (principal); F17.210 Nicotine dependence, cigarettes, uncomplicated | CPT/HCPCS: 99214 ==

== ENCOUNTER 2023-08-13 14:29 | Outpatient (CLI) | payer MEDICARE, SELFPAY ==
--- NOTE | 2023-08-13 14:35 | USCV_ITS ---
Cornelia William Age: 48 Gender: F : 1975 Exam Date: 08/13/2023 14:38 Ordering Phys: Misty Smith Technologist: Exam Location: [facility] – [place] Indication: chest pain BP: 120 / 80 HR: 81 Rhythm: Sinus Technical Quality: Adequate MEASUREMENTS (Male / Female) Normal Values 2D ECHO LV Diastolic Diameter PLAX 4.3 cm 4.2 - 5.9 / 3.9 - 5.3 cm IVS Diastolic Thickness 1.0 cm 0.6 - 1.0 / 0.6 - 0.9 cm IVS Systolic Thickness 1.6 cm LVPW Diastolic Thickness 1.3 cm 0.6 - 1.0 / 0.6 - 0.9 cm LVPW Systolic Thickness 1.7 cm LVOT Diameter 2.1 cm LV Ejection Fraction 2D Teich 62.0 % LV Ejection Fraction MOD 2C 57.3 % LV Ejection Fraction 2C AL 60.2 % LA Diameter 3.6 cm RA Systolic Volume 4C AL 34.9 ml RA Systolic Volume 4C MOD 32.9 ml LA Sys Volume AL 51.5 cm cubed LA Sys Volume Index AL 17.8 cm cubed/m squared IVC Diameter 1.9 cm M-MODE LA Ao Ratio MM 1.1 AV Cusp Separation MM 2.4 cm DOPPLER AV Peak Velocity 140.0 cm/s LVOT Peak Velocity 95.0 cm/s AV Area Cont Eq vti 2.8 cm squared AV Area Cont Eq pk 2.3 cm squared MV Peak Velocity 80.0 cm/s MV Area PHT 4.3 cm squared Mitral E to A Ratio 1.2 TV Peak Velocity 158.5 cm/s TR Peak Velocity 163.0 cm/s TR Peak Gradient 10.6 mmHg TV Peak E Velocity 91.0 cm/s Right Atrial Pressure 3.0 mmHg Pulmonary Artery Systolic Pressu 13.6 mmHg PV Peak Velocity 124.0 cm/s FINDINGS Left Ventricle Normal left ventricular size and systolic function, EF 62% . Right Ventricle The right ventricle is normal in size and function. Right Atrium The right atrium is normal in size. Left Atrium The left atrium is normal in size. Mitral Valve No gross abnormalities noted Aortic Valve No gross abnormalities noted. Appears to be tricuspid Tricuspid Valve No gross abnormalities noted Pulmonic Valve No gross abnormalities noted Pericardium Normal pericardium without effusion. Aorta Normal ascending aorta dimension. IVC Inferior vena cava not visualized. CONCLUSIONS Normal left ventricular size and systolic function, EF 62% . Normal cardiac chamber sizes. No significant valvular abnormalities noted There is no pericardial effusion. There are no intracardiac masses. Compared to the study from 11/12/2018, there may not be a significant change Dr More Lemos MD [facility] (Electronically Signed) Final Date: 20 August 2023 08:23 S
== END 2023-08-13 14:30 | disposition home or self-care (01) ==
PROVIDERS: PCP Family Medicine; Visit Provider Nurse Practitioner Family
DX: R55 Syncope and collapse (principal)
CPT/HCPCS: 93306

== ENCOUNTER → 2023-09-30 09:55 | Outpatient (BNVA) | payer MEDICARE, SELFPAY | PROVIDERS: PCP Family Medicine; Referring Provider Family Medicine; Visit Provider Surgery | DX: K21.9 Gastro-esophageal reflux disease without esophagitis (principal); Z12.11 Encounter for screening for malignant neoplasm of colon | CPT/HCPCS: 99204 ==

== ENCOUNTER 2023-10-18 11:05 | Outpatient (CLI) | payer MEDICARE, SELFPAY ==
--- NOTE | 2023-10-18 11:12 | MM_ITS ---
WS: [id number] BILATERAL SCREENING DIGITAL TOMOSYNTHESIS MAMMOGRAM WITH CAD HISTORY: SCREENING COMPARISON: 12/06/2021, 06/20/2018 Bilateral CC and MLO views with tomosynthesis and synthetic mammography submitted. Computer aided det ection analyzed. Breast composition: There are scattered areas of fibroglandular density. No suspicious masses, microc alcifications or architectural distortion. Benign calcifications within each breast. MM/[place] [id number] IMPRESSION: BI-RADS: 2-Benign FOLLOW UP: 1 Year Follow-up
== END 2023-10-18 11:06 | disposition home or self-care (01) ==
LOC: RAD 11:06
PROVIDERS: PCP Family Medicine; Visit Provider Family Medicine
DX: Z12.31 Encounter for screening mammogram for malignant neoplasm of breast (principal)
CPT/HCPCS: 77063; 77067

== ENCOUNTER 2023-11-13 08:52 | Day surgery (SDC) | payer MEDICARE, SELFPAY ==
[2023-11-13] VITALS (8 sets, daily range): BP systolic 147–171; BP diastolic 91–111; PULSE 54–86; RESP 16–21; TEMP 36.1–36.2; O2SAT 96–98; BMI 46.1
[2023-11-13] MEDS: sodium chloride 0.9% 1,000 ML 30 ML IV (09:41)
[2023-11-13 09:43] LABS: Glucose Point of Care 107 mg/dL (70-110)
--- NOTE | 2023-11-13 09:47 | ANES.PREANE2 ---
Pre-Anesthetic Assessment Height/Weight: Height 1.63 m Weight 122.016 kg Temp Pulse Resp BP Pulse Ox O2 Del Method 97.2 F L 86 16 147/104 98 Room Air 11/13/23 09:18 11/13/23 09:18 11/13/23 09:18 11/13/23 09:18 11/13/23 09:18 11/13/23 09:18 Operation Date: 11/13/23 10:15 Proposed Procedures p EGD 30960, 63068, G0101, K21.9,Z12.11(Not Applicable) - Stephen Diaz DO s Colonoscopy(Not Applicable) - Stephen Diaz DO Familial anesthetic complications: None Was Beta Leon taken within 24 hours: N/A Was Clonidine taken within 24 hours: N/A Last intake: Intake Last Liquid Date 11/12/23 Last Liquid Time 20:00 Last Solid Date 11/11/23 Last Solid Time 19:00 Social Tobacco (vapes) and No alcohol Exam alert, oriented x 3, clear to auscultation bilaterally and regular rate & rhythm Airway Mallampati: Class IV Dentition: other (none) Comments: Comments: large neck circumference, small mouth opening Pulmonary Asthma and Chronic Obstructive Pulmonary Disease CV/HEM Congestive Heart Failure and Hypertension GI Gastroesophageal Reflux Disease Metabolic Hyperlipidemia, Morbid Obesity and Thyroid Disease Anesthetic Plan ASA status: 3 Anesthesia: MAC Risk of > 500 ml blood loss (7ml/kg in children): No Medications/Allergies Home Medications Medication Instructions Recorded Confirmed Last Taken Type albuterol sulfate 90 mcg/actuation 2 puff inhalation Q6H PRN 06/11/19 11/11/23 11/11/23 History aerosol inhaler (Ventolin HFA) Shortness Of Breath Or Wheezing aspirin 81 mg tablet,delayed 81 mg PO DAILY 06/11/19 11/11/23 11/12/23 History release (Adult Low Dose Aspirin) cetirizine 10 mg capsule (All Day 10 mg PO DAILY 06/11/19 11/11/23 11/12/23 History Allergy (cetirizine)) montelukast 10 mg tablet 10 mg PO DAILY 06/11/19 11/11/23 11/12/23 History albuterol sulfate 2.5 mg/3 mL 2.5 mg inhalation Q4H PRN 06/25/19 11/13/23 6 Months Ago History (0.083 %) solution for nebulization Shortness Of Breath Or Wheezing ~05/15/23 gabapentin 100 mg capsule 100 mg PO TID #90 caps 05/17/20 11/11/23 11/12/23 Rx meloxicam 15 mg tablet 15 mg PO DAILY 05/29/21 11/11/23 11/12/23 History fluticasone fur. 100 mcg-umeclid 1 inh inhalation DAILY 01/04/22 11/11/23 11/12/23 History 62.5 mcg-vilant 25 mcg inhalat.powder (Trelegy Ellipta) simvastatin 20 mg tablet 20 mg PO DAILY #90 tabs 06/15/22 11/11/23 11/12/23 Rx furosemide 40 mg tablet 40 mg PO DAILY #90 tabs 10/29/22 11/11/23 11/12/23 Rx potassium chloride 10 mEq 10 meq PO DAILY #90 tabs 10/29/22 11/11/23 11/12/23 Rx tablet,extended release (Klor-Con) oxybutynin chloride 5 mg 20 mg PO DAILY 01/02/23 11/11/23 11/12/23 History tablet,extended release 24 hr lisinopril 2.5 mg tablet 2.5 mg PO DAILY PRN for SBP 150 or 07/23/23 11/13/23 1 Week Ago Rx above #90 tabs ~11/06/23 aripiprazole 5 mg tablet (Abilify) 5 mg PO DAILY #90 tabs 09/09/23 11/11/23 11/12/23 Rx bupropion HCl 150 mg 24 hr tablet, 150 mg PO QAM #90 tabs 09/09/23 11/11/23 11/12/23 Rx extended release (Wellbutrin XL) buspirone 30 mg tablet 30 mg PO BID #180 tabs 09/09/23 11/11/23 11/12/23 Rx clonazepam 1 mg tablet 1 mg PO BID anxiety #60 tabs 09/09/23 11/11/23 11/12/23 Rx hydroxyzine HCl 50 mg tablet 100 mg (2 x 50 mg) PO .Qhs #180 09/09/23 11/11/23 11/12/23 Rx tabs sertraline 50 mg tablet (Zoloft) 50 mg PO DAILY #90 tabs 09/09/23 11/11/23 11/12/23 Rx ondansetron 8 mg disintegrating 8 mg PO Q8H PRN nausea and 09/30/23 11/11/23 Unknown Rx tablet vomiting #20 tabs pantoprazole 40 mg tablet,delayed 40 mg PO BID 6 weeks #84 tabs 09/30/23 11/11/23 11/12/23 Rx release (Protonix) isosorbide mononitrate 30 mg 15 mg (1/2 x 30 mg) PO BID #90 tabs 11/04/23 11/11/23 11/12/23 Rx tablet,extended release 24 hr HyQvia See Rx Instructions .Route .COMPLEX 11/11/23 11/12/23 Unknown History bupropion HCl 300 mg 24 hr tablet, 300 mg PO QPM 11/11/23 11/11/23 11/12/23 History extended release (Wellbutrin XL) tirzepatide 2.5 mg/0.5 mL 2.5 mg SUBCUT .WEEKLY 11/11/23 11/11/23 10/27/23 History subcutaneous pen injector (Mounjaro) Allergies Allergy/AdvReac Type Severity Reaction Status Date / Time latex Allergy Unknown Unknown Verified 11/11/23 10:32 sumatriptan [From Imitrex] Allergy Unknown Unknown Verified 11/11/23 10:32 adhesive Allergy ALGY-Rash Verified 11/11/23 10:32 silver Allergy rash, Verified 11/11/23 10:32 [From Tegaderm AG Mesh] swelling, welps Current Medications Generic Name Dose Route Start Last Admin Trade Name Freq PRN Reason Stop Dose Admin Sodium Chloride 1,000 mls @ 30 mls/hr 11/12/23 12:15 11/13/23 09:41 Sodium Chloride 0.9% IV 11/13/23 12:14 30 mls/hr .Q24H VALERIE Administration PFSH Anesthesia Medical History On combination antipsychotic drug therapy Shortness of breath COPD (chronic obstructive pulmonary disease) Emphysema, unspecified Hypothyroid GERD (gastroesophageal reflux disease) Overactive bladder Angina at rest Post-traumatic stress disorder, chronic Nicotine dependence, cigarettes, uncomplicated Bipolar disorder, in partial remission, most recent episode depressed Surgical History H/O section H/O knee surgery H/O carpal tunnel repair History of cholecystectomy History of hysterectomy for cancer due to endometrial cancer History of shoulder surgery Family History Father Diabetes Hyperlipidemia Hypertension Sister Hyperlipidemia Hypertension Lung disease Psychiatric illness Mother Hyperlipidemia Hypertension Stroke Grandfather Colon cancer Denies family history of Dementia Social History Smoking and tobacco/nicotine status: current every day tobacco/nicotine user cigarettes Packs smoked per day: 1 Years cigarettes smoked: 27 [ Other cigarette details: Started at age 16, quit for 5 years.] and e-cigarettes E-Cigarette Details: e-cigarette Alcohol intake: current Alcohol intake frequency: holidays/special occasions only Substance/Drug Use: never Data Anesthesia Cardiac Studies: Echocardiogram 08/13/23 Sestamibi Stress Test (Cardiology) 09/11/19
--- NOTE | 2023-11-13 10:47 | PM.HP ---
Providers/Chief Complaint Primary Care Provider: Cassie Shelton DO Chief Complaint: Z12.11 History of Present Illness Cornelia William is a 48 year old female Review of Systems General: Reports: 10 or more systems reviewed and unremarkable except in HPI and below Medications/Allergies Home Medications Medication Instructions Recorded Confirmed Last Taken Type albuterol sulfate 90 mcg/actuation 2 puff inhalation Q6H PRN 06/11/19 11/11/23 11/11/23 History aerosol inhaler (Ventolin HFA) Shortness Of Breath Or Wheezing aspirin 81 mg tablet,delayed 81 mg PO DAILY 06/11/19 11/11/23 11/12/23 History release (Adult Low Dose Aspirin) cetirizine 10 mg capsule (All Day 10 mg PO DAILY 06/11/19 11/11/23 11/12/23 History Allergy (cetirizine)) montelukast 10 mg tablet 10 mg PO DAILY 06/11/19 11/11/23 11/12/23 History albuterol sulfate 2.5 mg/3 mL 2.5 mg inhalation Q4H PRN 06/25/19 11/13/23 6 Months Ago History (0.083 %) solution for nebulization Shortness Of Breath Or Wheezing ~05/15/23 gabapentin 100 mg capsule 100 mg PO TID #90 caps 05/17/20 11/11/23 11/12/23 Rx meloxicam 15 mg tablet 15 mg PO DAILY 05/29/21 11/11/23 11/12/23 History fluticasone fur. 100 mcg-umeclid 1 inh inhalation DAILY 01/04/22 11/11/23 11/12/23 History 62.5 mcg-vilant 25 mcg inhalat.powder (Trelegy Ellipta) simvastatin 20 mg tablet 20 mg PO DAILY #90 tabs 06/15/22 11/11/23 11/12/23 Rx furosemide 40 mg tablet 40 mg PO DAILY #90 tabs 10/29/22 11/11/23 11/12/23 Rx potassium chloride 10 mEq 10 meq PO DAILY #90 tabs 10/29/22 11/11/23 11/12/23 Rx tablet,extended release (Klor-Con) oxybutynin chloride 5 mg 20 mg PO DAILY 01/02/23 11/11/23 11/12/23 History tablet,extended release 24 hr lisinopril 2.5 mg tablet 2.5 mg PO DAILY PRN for SBP 150 or 07/23/23 11/13/23 1 Week Ago Rx above #90 tabs ~11/06/23 aripiprazole 5 mg tablet (Abilify) 5 mg PO DAILY #90 tabs 09/09/23 11/11/23 11/12/23 Rx bupropion HCl 150 mg 24 hr tablet, 150 mg PO QAM #90 tabs 09/09/23 11/11/23 11/12/23 Rx extended release (Wellbutrin XL) buspirone 30 mg tablet 30 mg PO BID #180 tabs 09/09/23 11/11/23 11/12/23 Rx clonazepam 1 mg tablet 1 mg PO BID anxiety #60 tabs 09/09/23 11/11/23 11/12/23 Rx hydroxyzine HCl 50 mg tablet 100 mg (2 x 50 mg) PO .Qhs #180 09/09/23 11/11/23 11/12/23 Rx tabs sertraline 50 mg tablet (Zoloft) 50 mg PO DAILY #90 tabs 09/09/23 11/11/23 11/12/23 Rx ondansetron 8 mg disintegrating 8 mg PO Q8H PRN nausea and 09/30/23 11/11/23 Unknown Rx tablet vomiting #20 tabs pantoprazole 40 mg tablet,delayed 40 mg PO BID 6 weeks #84 tabs 09/30/23 11/11/23 11/12/23 Rx release (Protonix) isosorbide mononitrate 30 mg 15 mg (1/2 x 30 mg) PO BID #90 tabs 11/04/23 11/11/23 11/12/23 Rx tablet,extended release 24 hr HyQvia See Rx Instructions .Route .COMPLEX 11/11/23 11/12/23 Unknown History bupropion HCl 300 mg 24 hr tablet, 300 mg PO QPM 11/11/23 11/11/23 11/12/23 History extended release (Wellbutrin XL) tirzepatide 2.5 mg/0.5 mL 2.5 mg SUBCUT .WEEKLY 11/11/23 11/11/23 10/27/23 History subcutaneous pen injector (Mounjaro) Allergies Allergy/AdvReac Type Severity Reaction Status Date / Time latex Allergy Unknown Unknown Verified 11/11/23 10:32 sumatriptan [From Imitrex] Allergy Unknown Unknown Verified 11/11/23 10:32 adhesive Allergy ALGY-Rash Verified 11/11/23 10:32 silver Allergy rash, Verified 11/11/23 10:32 [From Tegaderm AG Mesh] swelling, welps PFSH Acute PFSH: Medical History On combination antipsychotic drug therapy Shortness of breath COPD (chronic obstructive pulmonary disease) Emphysema, unspecified Hypothyroid GERD (gastroesophageal reflux disease) Overactive bladder Angina at rest Post-traumatic stress disorder, chronic Nicotine dependence, cigarettes, uncomplicated Bipolar disorder, in partial remission, most recent episode depressed Surgical History H/O section H/O knee surgery H/O carpal tunnel repair History of cholecystectomy History of hysterectomy for cancer due to endometrial cancer History of shoulder surgery Family History Father Diabetes Hyperlipidemia Hypertension Sister Hyperlipidemia Hypertension Lung disease Psychiatric illness Mother Hyperlipidemia Hypertension Stroke Grandfather Colon cancer Denies family history of Dementia Social History Smoking and tobacco/nicotine status: current every day tobacco/nicotine user cigarettes Packs smoked per day: 1 Years cigarettes smoked: 27 [ Other cigarette details: Started at age 16, quit for 5 years.] and e-cigarettes E-Cigarette Details: e-cigarette Alcohol intake: current Alcohol intake frequency: holidays/special occasions only Substance/Drug Use: never Vitals/I&O/Wt Last Vital Signs Temp 97.2 F L 11/13/23 09:18 Pulse 86 11/13/23 09:18 Resp 16 11/13/23 09:18 BP 147/104 11/13/23 09:18 Pulse Ox 98 11/13/23 09:18 O2 Del Method Room Air 11/13/23 09:18 Weight last 48 hrs Weight 269 lb A&P Assessment and plan (1) GERD (gastroesophageal reflux disease): (2) Colon cancer screening: Plan EGD and colonoscopy Attestations Medical Necessity Statement*: Home Coding Level of Care Code Acute Code for Chg Fwd Diagnoses GERD (gastroesophageal reflux disease) K21.9 Colon cancer screening Z12.11
[2023-11-13 12:04] LABS: Anion Gap 14.4 (5-19); Blood Urea Nitrogen 8 mg/dL (6-20); Calcium 8.5 mg/dL (8.5-10.5); Carbon Dioxide 22 mmol/L (22-29); Chloride 107 mmol/L (98-107); Creatinine Clr Calc Pharmacy 110.8192; Glomerular Filtration Rate 76.6 mL/min (90-130); Glucose 107 mg/dL (65-115); Osmolality Calculated 287 mOsm/kg (285-295); Potassium 4.4 mmol/L (3.5-5.1); Sodium 139 mmol/L (136-145)
--- NOTE | 2023-11-13 12:08 | PC.NURSE ---
STAINED GLASS JOINER NOTIFIED OF BP 171/111- MEDS GIVEN BY STAINED GLASS JOINER. BP AT 166/107 AFTER MEDS GIVEN WITH HR 59.
[2023-11-13] MEDS: hyDRALAzine 20 mg/mL INJ 1 mL 10 MG IVP (12:13)
--- NOTE | 2023-11-13 12:18 | PC.NURSE ---
POND WORKER NOTIFIED OF LAB RESULTS ORDERED BY ANESTHESIOLOGIST. POND WORKER NOTIFIED OF HR BELOW 60BPM- ORDERS GIVEN AND ENTERED IN EMAR.
--- NOTE | 2023-11-13 12:56 | ANE.PACU2 ---
Inpatient post-anesthesia follow up: Airway intact: Yes Vital signs: Temperature 97.0 F Pulse Rate 74 Respiratory Rate 21 Blood Pressure 162/97 Pulse Oximetry 97 Oxygen Delivery Me thod Room Air Oxygen Flow Rate Fraction of Inspir ed Oxygen Hydration adequate: Yes Nausea and vomiting: No Pain level: 1 Mental status: Baseline Additional Comments: Instructed patient to return to ER if repeat seizure, and informed her responsible adult with her to call ambulance if seizure occurs
== END 2023-11-13 12:49 | disposition home or self-care (01) ==
PROVIDERS: Anesthesiology; PCP Family Medicine; Visit Provider Surgery
PROC: 0DJ08ZZ Inspection of Upper Intestinal Tract, Via Natural or Artificial Opening Endoscopic (ICD-10-PCS; CPT 43235; principal; 2023-11-13 10:15)
PROC: 0DJD8ZZ Inspection of Lower Intestinal Tract, Via Natural or Artificial Opening Endoscopic (ICD-10-PCS; CPT 45378; 2023-11-13 10:15)
DX: Z12.11 Encounter for screening for malignant neoplasm of colon (principal); J44.9 Chronic obstructive pulmonary disease, unspecified; E03.9 Hypothyroidism, unspecified; K21.9 Gastro-esophageal reflux disease without esophagitis; F17.210 Nicotine dependence, cigarettes, uncomplicated; K64.8 Other hemorrhoids; F17.290 Nicotine dependence, other tobacco product, uncomplicated; I11.0 Hypertensive heart disease with heart failure; I50.9 Heart failure, unspecified; E78.5 Hyperlipidemia, unspecified; E66.01 Morbid (severe) obesity due to excess calories; Z68.42 Body mass index [BMI] 45.0-49.9, adult
CPT/HCPCS: 36416; 43239; 80048; 82962; 88305; G0121; J0360; J2250; J2704; J7030

== ENCOUNTER → 2023-12-13 09:05 | Outpatient (BNVA) | payer MEDICARE, SELFPAY | PROVIDERS: PCP Family Medicine; Visit Provider Surgery | DX: Z09 Encounter for follow-up examination after completed treatment for conditions other than malignant neoplasm (principal) | CPT/HCPCS: 99214 ==

== ENCOUNTER → 2024-01-29 15:01 | Outpatient (BNVA) | payer MEDICARE, SELFPAY | PROVIDERS: PCP Family Medicine; Visit Provider Internal Medicine | DX: J43.1 Panlobular emphysema (principal); I10 Essential (primary) hypertension; E78.2 Mixed hyperlipidemia; E66.01 Morbid (severe) obesity due to excess calories; Z68.42 Body mass index [BMI] 45.0-49.9, adult; K21.9 Gastro-esophageal reflux disease without esophagitis; E03.9 Hypothyroidism, unspecified; F17.290 Nicotine dependence, other tobacco product, uncomplicated | CPT/HCPCS: 99214 ==

== ENCOUNTER 2024-03-11 18:20 | Inpatient (IN) | payer MEDICARE, SELFPAY ==
[2024-03-11 18:27] VITALS: BP 150/89; PULSE 116; RESP 20; TEMP 37.3; O2SAT 99
--- NOTE | 2024-03-11 18:43 | XRR_ITS ---
PROCEDURE INFORMATION: Exam: XR Chest Exam date and time: 03/11/2024 7:58 PM Age: 49 years old Clinical indication: Cough and shortness of breath; Additional info: Fever TECHNIQUE: Imaging protocol: Radiologic exam of the chest. Views: 1 view. COMPARISON: CR XR chest 2V* [id number] 07/22/2023 12:06 PM FINDINGS: Lungs: Patchy airspace opacities in the left retrocardiac region. The lungs are otherwise clear. Pleural spaces: No pleural effusion or pneumothorax. Heart/Mediastinum: The cardiomediastinal silhouette is within normal limits. Bones/joints: No acute osseous abnormalities are seen. XR/XR chest 1V portable [id number] IMPRESSION: Patchy airspace opacities in the left retrocardiac region. Correlate with pneumonia in the setting of cough, shortness of breath, and fever.
[2024-03-11 19:42] LABS: Covid PCR NEGATIVE (Negative); Influenza A NEGATIVE (Negative); Influenza B NEGATIVE (Negative); Respiratory Syncytial Virus Ce NEGATIVE (Negative)
[2024-03-11 20:29] VITALS: BP 121/97; PULSE 103; O2SAT 92
[2024-03-11 20:29] LABS: ABG PCO2 32.5 mmHg (35-45); ABG PH Result 7.45 (7.35-7.45); Base Excess ABG -0.5 mmol/L (-2.0-2.0); HCO3 ABG 22.7 mmol/L (22-26); Oxygen Saturation ABG 90.8
[2024-03-11 20:30] LABS: Arterial Blood Gas Hematocrit 42.7 % (37-47); Potassium Level - ABG 3.8 mmol/L (3.5-5.0)
[2024-03-11 20:31] LABS: Carboxyhemoglobin 0.9 %THgb (0.4-20.1)
--- NOTE | 2024-03-11 20:36 | W.ED.COVID ---
HPI - COVID General: Chief Complaint: COVID symptoms Stated Complaint: shaky n/v SOB Time Seen by Provider: 03/11/24 19:25 Source: patient Mode of arrival: ambulatory Limitations: no limitations History of Present Illness: Patient is a 49-year-old female with history of COPD who presents the emergency department complaining of flulike symptoms over the past few days, worsening today. Symptoms reported are fevers, body aches, chills, nausea and vomiting, and an increase in shortness of breath. Also states that she has a chronic cough that has been intermittently productive of sputum. Reports history of COPD exacerbations in the past, states this feels similar but not completely. No known exposure to any viral illnesses. She does not use oxygen at home. Also reports she has a history of CHF and that she takes water pill. Denies any increase in peripheral swelling. No chest pain reported at this time. MD complaint: other (Flulike symptoms) Prior covid testing: no COVID 19 common symptoms: positive fever(s), chills, productive cough, dyspnea, body aches, nausea and vomiting; negative fatigue, headache(s), throat pain or diarrhea COVID 19 other sytmptoms: negative chest pain Treatment prior to arrival: none COVID Results: Coronavirus (PCR) Negative (Negative) 03/11/24 18:50 Related Data Home Medications Medication Instructions Recorded Confirmed albuterol sulfate 90 mcg/actuation 2 puff inhalation Q6H PRN 06/11/19 01/29/24 aerosol inhaler (Ventolin HFA) Shortness Of Breath Or Wheezing aspirin 81 mg tablet,delayed 81 mg PO DAILY 06/11/19 01/29/24 release (Adult Low Dose Aspirin) montelukast 10 mg tablet 10 mg PO DAILY 06/11/19 01/29/24 albuterol sulfate 2.5 mg/3 mL 2.5 mg inhalation Q4H PRN 06/25/19 01/29/24 (0.083 %) solution for nebulization Shortness Of Breath Or Wheezing meloxicam 15 mg tablet 15 mg PO DAILY 05/29/21 01/29/24 HyQvia See Rx Instructions .Route .COMPLEX 11/11/23 01/29/24 bupropion HCl 300 mg 24 hr tablet, 300 mg PO QPM 11/11/23 01/29/24 extended release (Wellbutrin XL) cholecalciferol (vitamin D3) 50 50 mcg PO BID 12/09/23 01/29/24 mcg (2,000 unit) capsule lisinopril 10 mg tablet 10 mg PO DAILY 12/13/23 01/29/24 acetaminophen 650 mg 1,300 mg PO Q12H 01/29/24 01/29/24 tablet,extended release cetirizine 10 mg capsule (All Day 10 mg PO BID 01/29/24 01/29/24 Allergy (cetirizine)) omeprazole 20 mg tablet,delayed 20 mg PO DAILY 01/29/24 01/29/24 release oxybutynin chloride 5 mg 10 mg PO BEDTIME 01/29/24 01/29/24 tablet,extended release 24 hr tirzepatide 5 mg/0.5 mL mg SUBCUT 01/29/24 01/29/24 subcutaneous pen injector (Dotty) Previous Rx's Medication Instructions Recorded gabapentin 100 mg capsule 100 mg PO TID #90 caps 05/17/20 simvastatin 20 mg tablet 20 mg PO DAILY #90 tabs 06/15/22 isosorbide mononitrate 30 mg 15 mg (1/2 x 30 mg) PO BID #90 tabs 11/04/23 tablet,extended release 24 hr aripiprazole 5 mg tablet (Abilify) 5 mg PO DAILY #90 tabs 12/09/23 bupropion HCl 150 mg 24 hr tablet, 150 mg PO QAM #90 tabs 12/09/23 extended release (Wellbutrin XL) buspirone 30 mg tablet 30 mg PO BID #180 tabs 12/09/23 clonazepam 1 mg tablet 1 mg PO BID anxiety #60 tabs 12/09/23 hydroxyzine HCl 50 mg tablet 100 mg (2 x 50 mg) PO .Qhs #180 12/09/23 tabs sertraline 50 mg tablet (Zoloft) 50 mg PO DAILY #90 tabs 12/09/23 furosemide 40 mg tablet 40 mg PO DAILY #90 tabs 01/29/24 potassium chloride 10 mEq 10 meq PO DAILY #90 tabs 01/29/24 tablet,extended release (Klor-Con) doxycycline hyclate 100 mg tablet 100 mg PO BID 10 days #20 tabs 03/11/24 prednisone 20 mg tablet 60 mg (3 x 20 mg) PO ONCE 5 days 03/11/24 #15 tabs Allergies Allergy/AdvReac Type Severity Reaction Status Date / Time latex Allergy Unknown Unknown Verified 01/29/24 15:19 sumatriptan [From Imitrex] Allergy Unknown Unknown Verified 01/29/24 15:19 adhesive Allergy ALGY-Rash Verified 01/29/24 15:19 silver Allergy rash, Verified 01/29/24 15:19 [From Tegaderm AG Mesh] swelling, welps Review of Systems General: Reports: 10 or more systems reviewed and unremarkable except in HPI and below Const: Reports: fever(s), chills and body aches; Denies: fatigue Eyes: Denies: change in vision ENMT: Denies: throat pain, ear or mastoid pain or nasal discharge Card: Denies: chest pain, palpitations, swelling of feet/ankles or lightheadedness Resp: Reports: dyspnea and productive cough; Denies: wheezing GI: Reports: nausea and vomiting; Denies: abdominal pain, diarrhea or constipation : Denies: flank pain, difficulty voiding, dysuria or urinary frequency Musc: Denies: neck pain, back pain or joint pain Skin/Breast: Denies: rash Neuro: Denies: headache(s), numbness in extremities or weakness in extremities PFSH ED PFSH: Medical History On combination antipsychotic drug therapy Shortness of breath COPD (chronic obstructive pulmonary disease) Emphysema, unspecified Hypothyroid GERD (gastroesophageal reflux disease) Overactive bladder Angina at rest Post-traumatic stress disorder, chronic Nicotine dependence, cigarettes, uncomplicated Bipolar disorder, in partial remission, most recent episode depressed Surgical History H/O section H/O knee surgery H/O carpal tunnel repair History of cholecystectomy History of hysterectomy for cancer due to endometrial cancer History of shoulder surgery Family History Father Diabetes Hyperlipidemia Hypertension Sister Hyperlipidemia Hypertension Lung disease Psychiatric illness Mother Hyperlipidemia Hypertension Stroke Grandfather Colon cancer Denies family history of Dementia Social History Smoking and tobacco/nicotine status: current every day tobacco/nicotine user (vaping) cigarettes Packs smoked per day: 1 Years cigarettes smoked: 27 [ Other cigarette details: Started at age 16, quit for 5 years.] and e-cigarettes E-Cigarette Details: e-cigarette Alcohol intake: current Alcohol intake frequency: holidays/special occasions only Substance/Drug Use: never Physical Exam Const: COMMON NORMALS: no acute distress and no limitations GENERAL APPEARANCE: cooperative, comfortable and well developed NUTRITIONAL APPEARANCE: obese morbidly obese ORIENTATION/CONSCIOUSNESS: Yes awake HENMT: COMMON NORMALS: normocephalic, atraumatic, hearing grossly normal bilaterally, moist oral mucous membranes and oropharynx normal HEAD & SCALP: normocephalic and atraumatic Eye: COMMON NORMALS: Equal, round and reactive pupils present, EOMs intact bilaterally and conjunctivae normal CONJUNCTIVA: Yes conjunctivae normal PUPIL: Yes Equal, round and reactive pupils present Neck/C-Spine: COMMON NORMALS: full ROM, supple and no JVD Resp: COMMON NORMALS: normal respiratory effort, No retractions, No use of accessory muscles and clear to auscultation bilaterally AUSCULTATION: clear to auscultation bilaterally Cardio: COMMON NORMALS: no JVD, regular rate, regular rhythm, No clicks present (Cardio), No murmurs present (Cardio) and No rub (Cardio) RATE: regular rate RHYTHM: regular rhythm GI: COMMON NORMALS: Normal to inspection, nondistended, normoactive bowel sounds present, Soft to palpation and non-tender AUSCULTATION: Yes normoactive bowel sounds PALPATION: Yes Soft to palpation RECTAL EXAM: deferred Extremity: COMMON NORMALS: normal to inspection, full ROM and capillary refill normal Psych: COMMON NORMALS: mental status grossly normal and Normal thought process present THOUGHT PROCESS: Normal thought process present Skin: COMMON NORMALS: no rashes or lesions noted GENERAL SKIN EXAM: no rashes or lesions noted Course Vital Signs: Vital signs: Vital Signs Temperature 99.1 F 03/11/24 18:27 Pulse Rate 117 H 03/11/24 22:12 Respiratory Rate 16 03/11/24 22:05 Blood Pressure 136/90 03/11/24 22:00 Pulse Oximetry 93 03/11/24 22:12 Oxygen Delivery Me thod Room Air 03/11/24 22:12 Oxygen Flow Rate 1 03/11/24 21:47 MDM - COVID Medical Decision Making Patient has history of COPD, presenting with flulike symptoms. Her swabs are negative, x-ray showing potentially signs of a pneumonia, likely in the setting of patient increasing shortness of breath. Does not use oxygen at home. She reported to me history of CHF, did not see history of this in her chart and her BNP was on diagnostic. Was given a breathing treatment, stated she felt somewhat better though she is noted to drop into the 80s with her SpO2 and was subsequently put on 2 L of oxygen. She was tried multiple times to be weaned off of this 2 L of oxygen, even after breathing treatment, and is unable to do so. Spoke with Dr. Macario, who agrees to accept the patient for observation. She was given Decadron and 1 dose of Doxy here in the emergency department, Dr. Covarrubias putting in admit orders at this time. Informed patient and family of plan, they agree at this time and all other questions and concerns addressed. Lab Data 03/11/24 20:35 03/11/24 20:35 Radiology Impressions Chest X-Ray 03/11/24 18:43 IMPRESSION: Patchy airspace opacities in the left retrocardiac region. Correlate with pneumonia in the setting of cough, shortness of breath, and fever. Laboratory Results WBC 11.16 10^3/uL (3.29-11.43) 03/11/24 20:35 RBC 4.73 10^6/uL (3.85-5.65) 03/11/24 20:35 Hgb 14.10 g/dL (11.27-16.99) 03/11/24 20:35 Hct 41.8 % (36-47) 03/11/24 20:35 MCV 88.4 fl (85-98) 03/11/24 20:35 MCH 29.8 pg (27-33) 03/11/24 20:35 MCHC 33.7 g/dL (30-55) 03/11/24 20:35 RDW 13.1 % (12.1-15.1) 03/11/24 20:35 Plt Count 184 10^3/cmm (157-399) 03/11/24 20:35 MPV 8.7 fL (7.4-10.4) 03/11/24 20:35 Neut % (Auto) 83.4 % 03/11/24 20:35 Lymph % (Auto) 9.8 % 03/11/24 20:35 [place] % (Auto) 6.2 % 03/11/24 20:35 Eos % (Auto) 0.0 % 03/11/24 20:35 Baso % (Auto) 0.2 % 03/11/24 20:35 Neut # (Auto) 9.32 10^3/uL (1.8-7.7) H 03/11/24 20:35 Lymph # (Auto) 1.1 10^3/uL (0.8-4.8) 03/11/24 20:35 [place] # (Auto) 0.7 10^3/uL (0.2-0.9) 03/11/24 20:35 Eos # (Auto) 0.0 10^3/uL (0.0-0.8) 03/11/24 20:35 Baso # (Auto) 0.0 10^3/uL (0.0-0.1) 03/11/24 20:35 Nucleated RBC % (auto) 0 % 03/11/24 20:35 Nucleated RBCs # 0.0 /100WBC 03/11/24 20:35 Specimen Type artierial 03/11/24 20:15 Sample Site left radial 03/11/24 20:15 O2 Sat Pulse Oximetry 90.0 % 03/11/24 20:15 ABG pH 7.45 (7.35-7.45) 03/11/24 20:15 ABG pCO2 32.5 mmHg (35-45) L 03/11/24 20:15 ABG pO2 65.5 mmHg (80.0-100.0) L 03/11/24 20:15 ABG PO2/FiO2 Ratio 311 03/11/24 20:15 ABG HCO3 22.7 mmol/L (22-26) 03/11/24 20:15 ABG O2 Saturation 90.8 03/11/24 20:15 ABG Base Excess -0.5 mmol/L (-2.0-2.0) 03/11/24 20:15 Porfirio Test pos 03/11/24 20:15 Hematocrit 42.7 % (37-47) 03/11/24 20:15 Carboxyhemoglobin 0.9 %THgb (0.4-20.1) 03/11/24 20:15 Total Hemoglobin 3.9 g/dL (12-16) L 03/11/24 20:15 Sodium 138.0 mmol/L (131-143) 03/11/24 20:15 Potassium 3.8 mmol/L (3.5-5.0) 03/11/24 20:15 Glucose 129.0 mg/dL (70-115) H 03/11/24 20:15 O2 Delivery Device room air 03/11/24 20:15 FiO2 21.0 % 03/11/24 20:15 Specimen Drawn By [facility] 03/11/24 20:15 Industrial Painter ID [facility] 03/11/24 20:15 Sodium 135 mmol/L (136-145) L 03/11/24 20:35 Potassium 4.4 mmol/L (3.5-5.1) 03/11/24 20:35 Chloride 99 mmol/L (98-107) 03/11/24 20:35 Carbon Dioxide 23 mmol/L (22-29) 03/11/24 20:35 Anion Gap 17.4 (5-19) 03/11/24 20:35 BUN 8 mg/dL (6-20) 03/11/24 20:35 Creatinine 1.0 mg/dL (0.5-0.9) H 03/11/24 20:35 GFR Calculation 58.9 mL/min (90-130) L 03/11/24 20:35 Glucose 130 mg/dL (65-115) H 03/11/24 20:35 Calculated Osmolality 280 mOsm/kg (285-295) L 03/11/24 20:35 Calcium 9.4 mg/dL (8.5-10.5) 03/11/24 20:35 Total Bilirubin 0.2 mg/dL (0.15-1.2) 03/11/24 20:35 AST 38 U/L (0-32) H 03/11/24 20:35 ALT 46 U/L (0-33) H 03/11/24 20:35 Alkaline Phosphatase 126 U/L (35-105) H 03/11/24 20:35 NT-Pro-B Natriuret Pep 131 pg/mL (0-125) H 03/11/24 20:35 Total Protein 8.1 g/dL (6.6-8.7) 03/11/24 20:35 Albumin 4.5 g/dL (3.5-5.2) 03/11/24 20:35 Globulin 3.6 g/dL (1.3-4.6) 03/11/24 20:35 Coronavirus (PCR) Negative (Negative) 03/11/24 18:50 Influenza A (PCR) Negative (Negative) 03/11/24 18:50 Influenza Type B (PCR) Negative (Negative) 03/11/24 18:50 RSV (PCR) Negative (Negative) 03/11/24 18:50 Coronavirus (PCR) Negative (Negative) 03/11/24 18:50 All radiology interpretation(s) finalized by discharge Discharge Plan Discharge Patient Disposition: Placed in Observation Admit Provider: Florencio Macario Clinical Impression: Acute exacerbation of chronic obstructive pulmonary disease Pneumonia Qualifiers: Pneumonia type: due to unspecified organism Laterality: unspecified laterality Lung location: unspecified part of lung Qualified Code(s): J18.9 - Pneumonia, unspecified organism Coding Level of Care Code ED Home Demonstration Agent for Estela De La O
[2024-03-11 20:52] LABS: Basophils % 0.2 %; Hematocrit 41.8 % (36-47); Lymphocytes # 1.1 10^3/uL (0.8-4.8); Lymphocytes % 9.8 %; Mean Corpuscular HGB Conc 33.7 g/dL (30-55); Mean Corpuscular Hemoglobin 29.8 pg (27-33); Mean Corpuscular Volume 88.4 fl (85-98); Mean Platelet Volume 8.7 fL (7.4-10.4); Monocytes # 0.7 10^3/uL (0.2-0.9); Monocytes % 6.2 %; Neutrophils # 9.32 10^3/uL (1.8-7.7); Neutrophils % 83.4 %; Nucleated Red Blood Cells % 0 %; Platelet Count 184 10^3/cmm (157-399); Red Blood Count 4.73 10^6/uL (3.85-5.65); Red Cell Distribution Width 13.1 % (12.1-15.1); White Blood Count 11.16 10^3/uL (3.29-11.43)
[2024-03-11 21:24] LABS: Alanine Aminotransferase 46 U/L (0-33); Albumin Level 4.5 g/dL (3.5-5.2); Alkaline Phosphatase 126 U/L (35-105); Anion Gap 17.4 (5-19); Aspartate Amino Transferase 38 U/L (0-32); Blood Urea Nitrogen 8 mg/dL (6-20); Calcium 9.4 mg/dL (8.5-10.5); Carbon Dioxide 23 mmol/L (22-29); Chloride 99 mmol/L (98-107); Creatinine Clr Calc Pharmacy 87.8868; Globulin 3.6 g/dL (1.3-4.6); Glomerular Filtration Rate 58.9 mL/min (90-130); Glucose 130 mg/dL (65-115); Osmolality Calculated 280 mOsm/kg (285-295); Potassium 4.4 mmol/L (3.5-5.1); Sodium 135 mmol/L (136-145); Total Bilirubin 0.2 mg/dL (0.15-1.2); Total Protein 8.1 g/dL (6.6-8.7)
[2024-03-11 21:25] LABS: NT Pro B Type Natriuretic Pept 131 pg/mL (0-125)
[2024-03-11] MEDS: doxycycline 100 mg Tablet PO (21:29)
[2024-03-11] MEDS: dexamethasone 10 mg/mL INJ IM (21:29)
[2024-03-11 21:47] VITALS: O2SAT 96
[2024-03-11 22:00] VITALS: BP 136/90; PULSE 117; O2SAT 94
[2024-03-11 22:05] VITALS: PULSE 113; RESP 16; O2SAT 90
[2024-03-11] MEDS: ipratropium-albuterol 3 mL Neb INHALATION (22:05)
[2024-03-11 22:12] VITALS: PULSE 117; O2SAT 93
--- NOTE | 2024-03-11 22:25 | P.HP_ITS ---
Providers/Chief Complaint 2 Primary Care Provider: Cassie Shelton DO Chief Complaint: shaky n/v SOB History of Present Illness Cornelia William is a 49 year old female with past medical history significant for asthma/COPD overlap syndrome, GERD, low back pain, hypothyroidism, hyperlipidemia, hypertension, PTSD, bipolar disorder, and nicotine use disorder who presents emergency department with flulike symptoms for the past 2 to 3 days. Patient reports symptoms worsen daily with today being the worst. She endorses symptoms of fevers, body aches, chills, nausea, vomiting, shortness of breath, and productive cough. She does have a chronic cough but the current cough is a change for her. In the emergency department, patient was found to have hypoxia on room air. She denies any current home oxygen needs. She reports a remote history of home oxygen many years ago which she recovered and no longer needed. Imaging revealed patchy airspace opacity in the left retrocardiac region concerning for pneumonia. Review of Systems 2 Narrative: A complete review of systems was obtained and is negative except as stated in HPI. Medications/Allergies Home Medications Medication Instructions Recorded Confirmed Last Taken Type albuterol sulfate 90 mcg/actuation 2 puff inhalation Q6H PRN 06/11/19 01/29/24 11/11/23 History aerosol inhaler (Ventolin HFA) Shortness Of Breath Or Wheezing aspirin 81 mg tablet,delayed 81 mg PO DAILY 06/11/19 01/29/24 11/12/23 History release (Adult Low Dose Aspirin) montelukast 10 mg tablet 10 mg PO DAILY 06/11/19 01/29/24 11/12/23 History albuterol sulfate 2.5 mg/3 mL 2.5 mg inhalation Q4H PRN 06/25/19 01/29/24 6 Months Ago History (0.083 %) solution for nebulization Shortness Of Breath Or Wheezing ~05/15/23 gabapentin 100 mg capsule 100 mg PO TID #90 caps 05/17/20 01/29/24 11/12/23 Rx meloxicam 15 mg tablet 15 mg PO DAILY 05/29/21 01/29/24 11/12/23 History simvastatin 20 mg tablet 20 mg PO DAILY #90 tabs 06/15/22 01/29/24 11/12/23 Rx isosorbide mononitrate 30 mg 15 mg (1/2 x 30 mg) PO BID #90 tabs 11/04/23 01/29/24 11/12/23 Rx tablet,extended release 24 hr HyQvia See Rx Instructions .Route .COMPLEX 11/11/23 01/29/24 Unknown History bupropion HCl 300 mg 24 hr tablet, 300 mg PO QPM 11/11/23 01/29/24 11/12/23 History extended release (Wellbutrin XL) aripiprazole 5 mg tablet (Abilify) 5 mg PO DAILY #90 tabs 12/09/23 01/29/24 Unknown Rx bupropion HCl 150 mg 24 hr tablet, 150 mg PO QAM #90 tabs 12/09/23 01/29/24 Unknown Rx extended release (Wellbutrin XL) buspirone 30 mg tablet 30 mg PO BID #180 tabs 12/09/23 01/29/24 Unknown Rx cholecalciferol (vitamin D3) 50 50 mcg PO BID 12/09/23 01/29/24 Unknown History mcg (2,000 unit) capsule clonazepam 1 mg tablet 1 mg PO BID anxiety #60 tabs 12/09/23 01/29/24 Unknown Rx hydroxyzine HCl 50 mg tablet 100 mg (2 x 50 mg) PO .Qhs #180 12/09/23 01/29/24 Unknown Rx tabs sertraline 50 mg tablet (Zoloft) 50 mg PO DAILY #90 tabs 12/09/23 01/29/24 Unknown Rx lisinopril 10 mg tablet 10 mg PO DAILY 12/13/23 01/29/24 Unknown History acetaminophen 650 mg 1,300 mg PO Q12H 01/29/24 01/29/24 Unknown History tablet,extended release cetirizine 10 mg capsule (All Day 10 mg PO BID 01/29/24 01/29/24 Unknown History Allergy (cetirizine)) furosemide 40 mg tablet 40 mg PO DAILY #90 tabs 01/29/24 01/29/24 Unknown Rx omeprazole 20 mg tablet,delayed 20 mg PO DAILY 01/29/24 01/29/24 Unknown History release oxybutynin chloride 5 mg 10 mg PO BEDTIME 01/29/24 01/29/24 Unknown History tablet,extended release 24 hr potassium chloride 10 mEq 10 meq PO DAILY #90 tabs 01/29/24 01/29/24 Unknown Rx tablet,extended release (Klor-Con) tirzepatide 5 mg/0.5 mL mg SUBCUT 01/29/24 01/29/24 Unknown History subcutaneous pen injector (Dotty) doxycycline hyclate 100 mg tablet 100 mg PO BID 10 days #20 tabs 03/11/24 Unknown Rx prednisone 20 mg tablet 60 mg (3 x 20 mg) PO ONCE 5 days 03/11/24 Unknown Rx #15 tabs Allergies Allergy/AdvReac Type Severity Reaction Status Date / Time latex Allergy Unknown Unknown Verified 01/29/24 15:19 sumatriptan [From Imitrex] Allergy Unknown Unknown Verified 01/29/24 15:19 adhesive Allergy ALGY-Rash Verified 01/29/24 15:19 silver Allergy rash, Verified 01/29/24 15:19 [From Tegaderm AG Mesh] swelling, welps PFSH Acute 2 PFSH: Medical History On combination antipsychotic drug therapy Shortness of breath COPD (chronic obstructive pulmonary disease) Emphysema, unspecified Hypothyroid GERD (gastroesophageal reflux disease) Overactive bladder Angina at rest Post-traumatic stress disorder, chronic Nicotine dependence, cigarettes, uncomplicated Bipolar disorder, in partial remission, most recent episode depressed Surgical History H/O section H/O knee surgery H/O carpal tunnel repair History of cholecystectomy History of hysterectomy for cancer due to endometrial cancer History of shoulder surgery Family History Father Diabetes Hyperlipidemia Hypertension Sister Hyperlipidemia Hypertension Lung disease Psychiatric illness Mother Hyperlipidemia Hypertension Stroke Grandfather Colon cancer Denies family history of Dementia Social History Smoking and tobacco/nicotine status: current every day tobacco/nicotine user (vaping) cigarettes Packs smoked per day: 1 Years cigarettes smoked: 27 [ Other cigarette details: Started at age 16, quit for 5 years.] and e-cigarettes E- Cigarette Details: e-cigarette Alcohol intake: current Alcohol intake frequency: holidays/special occasions only Substance/Drug Use: never Vitals/I&O/Wt Last Vital Signs Temp 99.1 F 03/11/24 18:27 Pulse 117 H 03/11/24 22:12 Resp 16 03/11/24 22:05 BP 136/90 03/11/24 22:00 Pulse Ox 93 03/11/24 22:12 O2 Del Method Room Air 03/11/24 22:12 O2 Flow Rate 1 03/11/24 21:47 Weight last 48 hrs Weight 122.47 kg Physical Exam 2 Narrative: General: Patient is awake. Ill-appearing. Head: Normocephalic. Atraumatic. EOM intact. Neck: No JVD. Cardiovascular: RRR. No gallops. No murmurs. Lungs: Breath sounds are slightly diminished bilateral bases. There is very faint end expiratory wheeze present. Conversational dyspnea. On supplemental oxygen support. Skin: No jaundice. No rashes. Abdomen: Normal bowel sounds, abdomen soft and nontender. Genito Urinary: Genital exam not performed since complaints not related. Rectal: Rectal exam not performed since no symptoms indicated blood loss. Extremities: No cyanosis or clubbing. Musculoskeletal: No swollen or erythematous joints. Neurological: Moves all 4 extremities. No myoclonus. Data 03/11/24 20:35 03/11/24 20:35 A&P Assessment and plan (1) Community acquired pneumonia: Left-sided community-acquired pneumonia Check procalcitonin and CRP Bacterial antigens requested Start ceftriaxone Start azithromycin Sputum culture requested (2) Asthma-COPD overlap syndrome: Asthma/COPD overlap syndrome with acute exacerbation with acute hypoxic respiratory insufficiency Start systemic steroids with Solu-Medrol Schedule breathing treatments Supplemental oxygen support Supportive care (3) Bipolar disorder, in partial remission, most recent episode depressed: Continue home medications after list is updated (4) Hypertension: Continue home antihypertensives Qualifiers: Hypertension type: essential hypertension Qualified Code(s): I10 - Essential (primary) hypertension (5) GERD (gastroesophageal reflux disease): Continue formulary PPI Plan DVT prophylaxis: Lovenox CODE STATUS: Full code Attestations 2 Medical Necessity Statement*: Patient presents with viral-like symptoms, found to have left-sided community- acquired pneumonia complicated by acute COPD/asthma exacerbation with hypoxia with expected hospitalization not to cross 2 midnights for IV antibiotics, IV steroids, breathing treatments, supplemental oxygen, and supportive care. Coding Level of Care Code Acute Code for [facility] Diagnoses Community acquired pneumonia J18.9 Asthma-COPD overlap syndrome J44.89 Bipolar disorder, in partial remission, most recent episode depressed F31.75 Essential hypertension I10 Hypertension type: essential hypertension GERD (gastroesophageal reflux disease) K21.9
[2024-03-12] VITALS (20 sets, daily range): BP systolic 115–147; BP diastolic 61–94; PULSE 88–120; RESP 16–20; TEMP 36.4–37.1; O2SAT 90–98; BMI 46.4
[2024-03-12] MEDS: AZITHROMYCIN ADD-Vantage 500 MG in 0.9% NaCl ADD-Vantage 250 ML 250 MG IV (00:29)
[2024-03-12] MEDS: methylPREDNISolone sod succ 40 mg/mL INJ IVP ×4 (00:29→18:21)
[2024-03-12] MEDS: cefTRIAXone 1,000 mg SDV 1000 MG IVP (00:29)
[2024-03-12] MEDS: ipratropium-albuterol 3 mL Neb INHALATION ×6 (03:16→23:45)
[2024-03-12 05:10] LABS: PO2 ABG 56.5 mmHg (80.0-100.0); PO2 FiO2 Ratio Arterial Blood 269
[2024-03-12 05:24] LABS: Basophils % 0.1 %; Lymphocytes # 0.8 10^3/uL (0.8-4.8); Mean Corpuscular HGB Conc 32.2 g/dL (30-55); Mean Corpuscular Hemoglobin 28.9 pg (27-33); Mean Corpuscular Volume 89.9 fl (85-98); Mean Platelet Volume 8.9 fL (7.4-10.4); Monocytes # 0.2 10^3/uL (0.2-0.9); Neutrophils # 10.69 10^3/uL (1.8-7.7); Neutrophils % 90.4 %; Nucleated Red Blood Cells % 0 %; Platelet Count 187 10^3/cmm (157-399); Red Blood Count 4.56 10^6/uL (3.85-5.65); Red Cell Distribution Width 13.2 % (12.1-15.1); White Blood Count 11.83 10^3/uL (3.29-11.43)
[2024-03-12 05:49] LABS: C Reactive Protein 141.4 mg/L (0.0-4.9); Procalcitonin 1.43 ng/mL (0-0.5)
[2024-03-12] MEDS: enoxaparin 40 mg/0.4 mL Syringe SUBCUT (05:53)
[2024-03-12 05:58] LABS: Anion Gap 20.3 (5-19); Blood Urea Nitrogen 9 mg/dL (6-20); Calcium 8.8 mg/dL (8.5-10.5); Carbon Dioxide 21 mmol/L (22-29); Chloride 99 mmol/L (98-107); Creatinine Clr Calc Pharmacy 97.7819; Glomerular Filtration Rate 66.5 mL/min (90-130); Glucose 192 mg/dL (65-115); Magnesium 1.9 mg/dL (1.7-2.3); Osmolality Calculated 286 mOsm/kg (285-295); Potassium 4.3 mmol/L (3.5-5.1); Sodium 136 mmol/L (136-145)
[2024-03-12 11:11] LABS: Alveolar-Arterial Oxygen Gradi 6.9 mmHg (5-10); Blood Gas Allen Test Pos; Blood Gas Sample Site Radial, left; Blood Gas Sample Type Arterial; HGB O2 Sat 89.9 % (95-100); Ionized Calcium Level - ABG 1.1 mmol/L (1.1-1.4); Methemoglobin 0.1 % (0.4-1.5); Oxygen Device ROOM AIR; Total Hemoglobin 13.9 g/dL (12-16)
--- NOTE | 2024-03-12 13:47 | P.PN_ITS ---
Subjective 2 Subjective: She is still having difficulty with breathing. Having productive cough and is able to expectorate with the help of flutter valve. Vitals/I&O/Wt Last Vital Signs Temp 98.7 F 03/12/24 07:32 Pulse 91 03/12/24 11:49 Resp 17 03/12/24 11:34 BP 115/61 03/12/24 07:32 Pulse Ox 96 03/12/24 11:34 O2 Del Method Nasal Cannula 03/12/24 11:34 O2 Flow Rate 1 03/12/24 11:34 03/11/24 03/12/24 03/12/24 22:59 06:59 14:59 Intake Total 250 / 250 480 / 480 Balance 250 / 250 480 / 480 Weight last 48 hrs Weight 122.742 kg Weight 122.742 kg Weight 122.47 kg Physical Exam 2 Narrative: Accompanied by her daughter. Const: COMMON NORMALS: patient oriented x3 and alert GENERAL APPEARANCE: c ooperative NUTRITIONAL APPEARANCE: obese ORIENTATION/CONSCIOUSNESS: Yes awake HENMT: COMMON NORMALS: oropharynx normal Neck/C-Spine: COMMON NORMALS: no JVD Resp: AUSCULTATION: rhonchi and diminished lung sounds diffuse (Mildly) Cardio: COMMON NORMALS: no JVD, regular rhythm, S1 normal heart sound present, S2 normal heart sound present and No murmurs present (Cardio) RHYTHM: regular rhythm HEART SOUNDS: S1 normal heart sound present and S2 normal heart sound present GI: COMMON NORMALS: Normal to inspection, nondistended, normoactive bowel sounds present, Soft to palpation and non-tender PALPATION: Yes Soft to palpation Extremity: COMMON NORMALS: no joint enlargement and no pedal edema Neuro: COMMON NORMALS: patient oriented x3 and moves all extremities S ENSORIUM/ORIENTATION: Yes alert Skin: COMMON NORMALS: no rashes or lesions noted GENERAL SKIN EXAM: no rashes or lesions noted Data 03/12/24 04:46 03/12/24 04:46 Micro: Microbiology 03/12/24 08:50 Gram Stain - Final Sputum - Expectorated Sputum A&P Assessment and plan (1) Community acquired pneumonia: Continue ceftriaxone, azithromycin. She is now expectorating with flutter valve per discussion with respiratory therapist. Sputum culture collected. Follow- up. Reviewed vitals, CBC, ABG, CMP, procalcitonin, respiratory viral studies. She is still requiring supplemental oxygen, not normally oxygen. Discussed with community case manager. Left-sided community-acquired pneumonia Reviewed procalcitonin and CRP Bacterial antigens reviewed, not collected yet. ceftriaxone azithromycin. Monitor for risk of QT prolongation. Check EKG. She appears to be on multiple medications at home, although exact list is unknown, requested to confirm. (2) Asthma-COPD overlap syndrome: With productive cough, rhonchi. Dyspnea. Hypoxia. Continue IV steroids with Solu-Medrol. Monitor for risk of hyperglycemia, hypertension, gastritis, encephalopathy. Noted hyperglycemia, glucose 192. Changed to consult carbohydrate diet. Check A1c. Asthma/COPD overlap syndrome with acute exacerbation with acute hypoxic respiratory insufficiency Start systemic steroids with Solu-Medrol Schedule breathing treatments Supplemental oxygen support Supportive care (3) Bipolar disorder, in partial remission, most recent episode depressed: Continue home medications after list is updated. Requested to confirm. (4) Hypertension: Continue home antihypertensives Qualifiers: Hypertension type: essential hypertension Qualified Code(s): I10 - Essential (primary) hypertension (5) GERD (gastroesophageal reflux disease): Continue formulary PPI Plan DVT prophylaxis: Lovenox CODE STATUS: Full code Attestations 2 Medical Necessity Statement*: Continue hospitalization for treatment of pneumonia, asthma/COPD overlap syndrome exacerbation complicated by new hypoxia. and High MDM includes amount and/or complexity of data reviewed/ordered [ resulted lab(s)/test(s), ordered lab(s)/test(s) and other healthcare professional discussion] and described risk of complication, morbidity or mortality of management as documented Diagnoses Community acquired pneumonia J18.9 Asthma-COPD overlap syndrome J44.89 Bipolar disorder, in partial remission, most recent episode depressed F31.75 Essential hypertension I10 Hypertension type: essential hypertension GERD (gastroesophageal reflux disease) K21.9
[2024-03-12 15:06] LABS: Estmated Average Glucose 126
--- NOTE | 2024-03-12 15:12 | ECG_ITS ---
[facility] Date: 2024-03-12 Pat Name: Cornelia William Department: Room: 251 Gender: Female Overnight Associate: : 1975 Requested By: Mitchel Augustine Order Number: [id number] Katlyn MD: Marcelo Carmona M.D. Measurements Intervals [place] Rate: 95 P: 23 MD: 172 QRS: 35 QRSD: 92 T: 12 QT: 374 QTc: 471 Interpretive Statements SINUS RHYTHM NONSPECIFIC T-WAVE ABNORMALITY Compared to ECG 06/23/2023 18:40:47 T-wave abnormality now present Electronically Signed On 03-14-2024 10:38:34 [employer] by Marcelo Carmona M.D. [email or web address]
[2024-03-12] MEDS: cetirizine 10 mg Tablet PO (18:20)
[2024-03-12] MEDS: BuSPIRONE 10 mg Tablet 30 MG PO (18:20)
[2024-03-12] MEDS: buPROPion XL (24 HR) 300 mg Tablet PO (18:20)
[2024-03-12] MEDS: pantoprazole DR 40 mg Tablet PO (20:15)
[2024-03-12] MEDS: montelukast sodium 10 mg Tablet PO (20:16)
[2024-03-12] MEDS: gabapentin 100 mg Capsule PO (20:16)
[2024-03-12] MEDS: lisinopril 10 mg Tablet PO (20:16)
[2024-03-12] MEDS: hyDROXYzine 25 mg Capsule PO (22:01)
[2024-03-13] VITALS (10 sets, daily range): BP systolic 122–141; BP diastolic 84–93; PULSE 69–103; RESP 16–21; TEMP 36.4–36.6; O2SAT 92–96
[2024-03-13] MEDS: methylPREDNISolone sod succ 40 mg/mL INJ IVP ×2 (00:10→05:54)
[2024-03-13] MEDS: cefTRIAXone 1,000 mg SDV 1000 MG IVP (00:10)
[2024-03-13] MEDS: AZITHROMYCIN ADD-Vantage 500 MG in 0.9% NaCl ADD-Vantage 250 ML 250 MG IV (00:10)
[2024-03-13] MEDS: ipratropium-albuterol 3 mL Neb INHALATION ×2 (03:14→08:08)
[2024-03-13 05:08] LABS: Basophils % 0.1 %; Eosinophils % 0.1 %; Hematocrit 39.4 % (36-47); Lymphocytes # 1.2 10^3/uL (0.8-4.8); Lymphocytes % 7.2 %; Mean Corpuscular HGB Conc 31.7 g/dL (30-55); Mean Corpuscular Hemoglobin 29.6 pg (27-33); Mean Corpuscular Volume 93.4 fl (85-98); Mean Platelet Volume 9.3 fL (7.4-10.4); Monocytes # 0.5 10^3/uL (0.2-0.9); Monocytes % 3.2 %; Neutrophils # 14.12 10^3/uL (1.8-7.7); Neutrophils % 88.9 %; Nucleated Red Blood Cells % 0 %; Platelet Count 209 10^3/cmm (157-399); Red Blood Count 4.22 10^6/uL (3.85-5.65); Red Cell Distribution Width 13.4 % (12.1-15.1); White Blood Count 15.89 10^3/uL (3.29-11.43)
[2024-03-13 05:33] LABS: Alanine Aminotransferase 31 U/L (0-33); Alkaline Phosphatase 101 U/L (35-105); Anion Gap 17.5 (5-19); Aspartate Amino Transferase 21 U/L (0-32); Blood Urea Nitrogen 13 mg/dL (6-20); Carbon Dioxide 24 mmol/L (22-29); Chloride 101 mmol/L (98-107); Creatinine Clr Calc Pharmacy 125.7195; Globulin 3.6 g/dL (1.3-4.6); Glomerular Filtration Rate 88.9 mL/min (90-130); Glucose 182 mg/dL (65-115); Osmolality Calculated 291 mOsm/kg (285-295); Potassium 4.5 mmol/L (3.5-5.1); Sodium 138 mmol/L (136-145); Total Bilirubin 0.2 mg/dL (0.15-1.2); Total Protein 7.6 g/dL (6.6-8.7)
[2024-03-13] MEDS: enoxaparin 40 mg/0.4 mL Syringe SUBCUT (05:53)
[2024-03-13] MEDS: buPROPion XL (24 HR) 150 mg Tablet PO (05:54)
[2024-03-13] MEDS: gabapentin 100 mg Capsule PO (08:04)
[2024-03-13] MEDS: ARIPiprazole 10 mg Tablet 5 MG PO (08:04)
[2024-03-13] MEDS: FUROsemide 40 mg Tablet PO (08:04)
[2024-03-13] MEDS: pantoprazole DR 40 mg Tablet PO (08:04)
[2024-03-13] MEDS: BuSPIRONE 10 mg Tablet 30 MG PO (08:04)
[2024-03-13] MEDS: cetirizine 10 mg Tablet PO (08:04)
[2024-03-13] MEDS: aspirin 81 mg EC Tablet PO (08:05)
--- NOTE | 2024-03-13 10:31 | PM.DCS ---
Discharge Providers Date of Admission: 03/12/24 13:47 Date of Discharge: March 13, 2024 Attending Provider at Admission: Florencio Macario MD Attending Provider at Discharge: Mitchel Augustine Primary Care Provider: Cassie Shelton DO Diagnoses at Discharge Discharge Diagnosis (1) Community acquired pneumonia: Status: Acute (2) Asthma-COPD overlap syndrome: Status: Acute (3) Bipolar disorder, in partial remission, most recent episode depressed: Status: Acute (4) Hypertension: Status: Chronic Qualifiers: Hypertension type: essential hypertension Qualified Code(s): I10 - Essential (primary) hypertension (5) GERD (gastroesophageal reflux disease): Status: Acute Reason for Visit Reason for Visit: lucio n/v LYNETTE Hospital Course Hospital Course Pleasant 49-year-old lady was admitted and treated for community-acquired pneumonia, COPD-asthma overlap syndrome exacerbation, with new hypoxia and oxygen requirement, received treatment with ceftriaxone, azithromycin, Solu-Medrol, breathing treatments, with gradual improvement in symptoms. Gradual improvement in cough, air entry, decrease in wheezing, weaning down on oxygen requirement down to room air. Did not need oxygen at home O2 evaluation prior to discharge. Sputum culture with few normal marlen on preliminary results. Coronavirus, influenza, RSV PCR negative. She will complete antibiotic course with ceftriaxone, azithromycin, complete short course of steroid with prednisone. Has medication for nebulization at home which she will continue. Physical Exam Narrative: Feeling much better. Off oxygen. Ambulated in the room. Has been working with incentive spirometer, flutter valve with good results. Accompanied by family. Const: COMMON NORMALS: patient oriented x3 and alert GENERAL APPEARANCE: cooperative ORIENTATION/CONSCIOUSNESS: Yes awake HENMT: COMMON NORMALS: oropharynx normal Neck/C-Spine: COMMON NORMALS: no JVD Resp: COMMON NORMALS: normal respiratory effort and clear to auscultation bilaterally AUSCULTATION: clear to auscultation bilaterally Cardio: COMMON NORMALS: no JVD, regular rhythm, S1 normal heart sound present, S2 normal heart sound present and No murmurs present (Cardio) RHYTHM: regular rhythm HEART SOUNDS: S1 normal heart sound present and S2 normal heart sound present GI: COMMON NORMALS: Normal to inspection, nondistended, normoactive bowel sounds present, Soft to palpation and non-tender PALPATION: Yes Soft to palpation Extremity: COMMON NORMALS: no joint enlargement and no pedal edema Neuro: COMMON NORMALS: patient oriented x3 and moves all extremities SENSORIUM/ORIENTATION: Yes alert Skin: COMMON NORMALS: no rashes or lesions noted GENERAL SKIN EXAM: no rashes or lesions noted Discharge Data Studies Completed and Pending Completed Studies During Hospitalization Category Date Time Status CXRP [XR chest 1V portable 11070] Stat Exams 03/11/24 18:43 Completed Pending at discharge Category Date Time Status Bacterial Antigen Routine Lab 03/12/24 00:02 Uncollected Complete Blood Count w/Auto AM LABS Lab 03/14/24 04:00 Ordered Complete Blood Count w/Auto AM LABS Lab 03/15/24 04:00 Ordered Comprehensive Metabolic Panel AM LABS Lab 03/14/24 04:00 Ordered Comprehensive Metabolic Panel AM LABS Lab 03/15/24 04:00 Ordered Sputum Culture and Gram Stain Routine Lab 03/12/24 08:50 Results Radiology Impressions Chest X-Ray 03/11/24 18:43 IMPRESSION: Patchy airspace opacities in the left retrocardiac region. Correlate with pneumonia in the setting of cough, shortness of breath, and fever. Laboratory Results WBC 15.89 10^3/uL (3.29-11.43) H 03/13/24 04:15 RBC 4.22 10^6/uL (3.85-5.65) 03/13/24 04:15 Hgb 12.50 g/dL (11.27-16.99) 03/13/24 04:15 Hct 39.4 % (36-47) 03/13/24 04:15 MCV 93.4 fl (85-98) 03/13/24 04:15 MCH 29.6 pg (27-33) 03/13/24 04:15 MCHC 31.7 g/dL (30-55) 03/13/24 04:15 RDW 13.4 % (12.1-15.1) 03/13/24 04:15 Plt Count 209 10^3/cmm (157-399) 03/13/24 04:15 MPV 9.3 fL (7.4-10.4) 03/13/24 04:15 Neut % (Auto) 88.9 % 03/13/24 04:15 Lymph % (Auto) 7.2 % 03/13/24 04:15 [place] % (Auto) 3.2 % 03/13/24 04:15 Eos % (Auto) 0.1 % 03/13/24 04:15 Baso % (Auto) 0.1 % 03/13/24 04:15 Neut # (Auto) 14.12 10^3/uL (1.8-7.7) H 03/13/24 04:15 Lymph # (Auto) 1.2 10^3/uL (0.8-4.8) 03/13/24 04:15 [place] # (Auto) 0.5 10^3/uL (0.2-0.9) 03/13/24 04:15 Eos # (Auto) 0.0 10^3/uL (0.0-0.8) 03/13/24 04:15 Baso # (Auto) 0.0 10^3/uL (0.0-0.1) 03/13/24 04:15 Nucleated RBC % (auto) 0 % 03/13/24 04:15 Nucleated RBCs # 0.0 /100WBC 03/13/24 04:15 Specimen Type Arterial 03/11/24 20:15 Sample Site Radial, left 03/11/24 20:15 O2 Sat Pulse Oximetry 90.0 % 03/11/24 20:15 ABG pH 7.45 (7.35-7.45) 03/11/24 20:15 ABG pCO2 32.5 mmHg (35-45) L 03/11/24 20:15 ABG pO2 56.5 mmHg (80.0-100.0) L 03/11/24 20:15 ABG PO2/FiO2 Ratio 269 03/11/24 20:15 ABG HCO3 22.7 mmol/L (22-26) 03/11/24 20:15 ABG O2 Saturation 90.8 03/11/24 20:15 ABG Base Excess -0.5 mmol/L (-2.0-2.0) 03/11/24 20:15 Porfirio Test Pos 03/11/24 20:15 A-a O2 Gradient 6.9 mmHg (5-10) 03/11/24 20:15 Hematocrit 42.7 % (37-47) 03/11/24 20:15 Hgb O2 Saturation 89.9 % (95-100) L 03/11/24 20:15 Carboxyhemoglobin 0.9 %THgb (0.4-20.1) 03/11/24 20:15 Methemoglobin 0.1 % (0.4-1.5) L 03/11/24 20:15 Total Hemoglobin 13.9 g/dL (12-16) 03/11/24 20:15 Sodium 138.0 mmol/L (131-143) 03/11/24 20:15 Potassium 3.8 mmol/L (3.5-5.0) 03/11/24 20:15 Glucose 129.0 mg/dL (70-115) H 03/11/24 20:15 Ionized Calcium 1.1 mmol/L (1.1-1.4) 03/11/24 20:15 O2 Delivery Device Room air 03/11/24 20:15 FiO2 21.0 % 03/11/24 20:15 Specimen Drawn By joshua 03/11/24 20:15 Sewer Pipe Layer Helper ID [facility] 03/11/24 20:15 Sodium 138 mmol/L (136-145) 03/13/24 04:15 Potassium 4.5 mmol/L (3.5-5.1) 03/13/24 04:15 Chloride 101 mmol/L (98-107) 03/13/24 04:15 Carbon Dioxide 24 mmol/L (22-29) 03/13/24 04:15 Anion Gap 17.5 (5-19) 03/13/24 04:15 BUN 13 mg/dL (6-20) 03/13/24 04:15 Creatinine 0.7 mg/dL (0.5-0.9) 03/13/24 04:15 GFR Calculation 88.9 mL/min (90-130) L 03/13/24 04:15 Glucose 182 mg/dL (65-115) H 03/13/24 04:15 Estimat Average Glucose 126 03/12/24 04:46 Hemoglobin A1c 6.0 % (4.0-6.0) 03/12/24 04:46 Calculated Osmolality 291 mOsm/kg (285-295) 03/13/24 04:15 Calcium 9.0 mg/dL (8.5-10.5) 03/13/24 04:15 Magnesium 1.9 mg/dL (1.7-2.3) 03/12/24 04:46 Total Bilirubin 0.2 mg/dL (0.15-1.2) 03/13/24 04:15 AST 21 U/L (0-32) 03/13/24 04:15 ALT 31 U/L (0-33) 03/13/24 04:15 Alkaline Phosphatase 101 U/L (35-105) 03/13/24 04:15 C-Reactive Protein 141.4 mg/L (0.0-4.9) H 03/12/24 04:46 NT-Pro-B Natriuret Pep 131 pg/mL (0-125) H 03/11/24 20:35 Total Protein 7.6 g/dL (6.6-8.7) 03/13/24 04:15 Albumin 4.0 g/dL (3.5-5.2) 03/13/24 04:15 Globulin 3.6 g/dL (1.3-4.6) 03/13/24 04:15 Procalcitonin 1.43 ng/mL (0-0.5) H 03/12/24 04:46 Coronavirus (PCR) Negative (Negative) 03/11/24 18:50 Influenza A (PCR) Negative (Negative) 03/11/24 18:50 Influenza Type B (PCR) Negative (Negative) 03/11/24 18:50 RSV (PCR) Negative (Negative) 03/11/24 18:50 Vitals Last Vital Signs Temp 97.9 F 03/13/24 07:24 Pulse 88 03/13/24 08:13 Resp 16 03/13/24 08:03 BP 129/85 03/13/24 07:24 Pulse Ox 95 03/13/24 08:03 O2 Del Method Nasal Cannula 03/13/24 08:03 O2 Flow Rate 1 03/13/24 08:03 Discharge Plan Discharge Patient Disposition: Home Condition: Stable Prescriptions: New cefdinir 300 mg capsule 300 mg PO BID 5 Days Qty: 10 0RF azithromycin 250 mg tablet See Rx Instructions .ROUTE .COMPLEX Qty: 6 0RF Rx Instructions: For 250 mg dose pack: take 500 mg today (day 1), then 250 mg for 4 days (days 2-5) prednisone 20 mg tablet 40 mg PO DAILY 3 Days Qty: 6 0RF Continued aspirin [Adult Low Dose Aspirin] 81 mg tablet,delayed release (DR/EC) 81 mg PO DAILY montelukast 10 mg tablet 10 mg PO BEDTIME albuterol sulfate [Ventolin HFA] 90 mcg/actuation HFA aerosol inhaler 2 puff INHALATION Q6H PRN (Reason: Shortness Of Breath Or Wheezing) All Day Allergy (cetirizine) 10 mg capsule 10 mg PO BID albuterol sulfate 2.5 mg /3 mL (0.083 %) solution for nebulization 2.5 mg INHALATION Q4H PRN (Reason: Shortness Of Breath Or Wheezing) meloxicam 15 mg tablet 15 mg PO DAILY Hold Instructions: Resume on 11/15/23. oxybutynin chloride 5 mg tablet extended release 24hr 10 mg PO BEDTIME acetaminophen 650 mg tablet extended release 1,300 mg PO Q12H omeprazole 20 mg tablet,delayed release (/EC) 20 mg PO DAILY Mounjaro 5 mg/0.5 mL pen injector 5 mg SUBCUT Q7D furosemide 40 mg tablet 40 mg PO DAILY Qty: 90 3RF potassium chloride [Klor-Con 10] 10 mEq tablet extended release 10 meq PO DAILY Qty: 90 3RF cholecalciferol (vitamin D3) 50 mcg (2,000 unit) capsule 50 mcg PO BID bupropion HCl [Wellbutrin XL] 150 mg tablet extended release 24 hr 150 mg PO QAM Qty: 90 0RF aripiprazole [Abilify] 5 mg tablet 5 mg PO DAILY Qty: 90 0RF buspirone 30 mg tablet 30 mg PO BID Qty: 180 0RF clonazepam 1 mg tablet 1 mg PO BID Qty: 60 2RF hydroxyzine HCl 50 mg tablet 100 mg PO .Qhs Qty: 180 0RF Rx Instructions: 1-2 tablets at bedtime as needed for sleep. lisinopril 10 mg tablet 10 mg PO BEDTIME Rx Instructions: Take 1 tab by mouth once daily at bedtime gabapentin 100 mg capsule 100 mg PO TID Qty: 90 5RF Rx Instructions: 1 in the am and 2 in the pm simvastatin 20 mg tablet 20 mg PO DAILY Qty: 90 2RF isosorbide mononitrate 30 mg tablet extended release 24 hr 15 mg PO BID Qty: 90 2RF Rx Instructions: 15 in the AM and 15 HS sertraline [Zoloft] 50 mg tablet 50 mg PO DAILY Qty: 90 0RF HyQvia See Rx Instructions .ROUTE .COMPLEX Rx Instructions: 1 infusion every 4 weeks bupropion HCl [Wellbutrin XL] 300 mg tablet extended release 24 hr 300 mg PO QPM Discharge Orders: Discharge Order (Routine); Ordered 03/13/24 Ordered By: Mitchel Augustine Referrals: Cassie Shelton DO [Primary Care Provider] - 03/17/24 1:30 pm Patient Instructions: COPD, Prednisone (By mouth), Azithromycin (By mouth) (Zithromax, Zithromax Tri-Ranjan, Zithromax..., Cefdinir (By mouth), Pneumonia (GEN), COPD Stoplight, Opioid Safety, Pneumonia Stoplight Activity Restrictions/Additional Instructions: Complete antibiotic, steroids, continue flutter valve, incentive spirometer, follow-up with primary provider for reassessment. Target oxygen saturation 88-92%. As discussed, seek medical attention in case of any worsening or new concerning symptoms. Discharge Attestations Time Spent in Discharge Care*: greater than 30 min Quality Metrics Clinical Quality Measures [ No reported AMI, CVA or VTE this stay] Coding Level of Care Code 10046 Total time (in minutes) for Discharge: 40 Diagnoses Community acquired pneumonia J18.9 Asthma-COPD overlap syndrome J44.89 Bipolar disorder, in partial remission, most recent episode depressed F31.75 Essential hypertension I10 Hypertension type: essential hypertension GERD (gastroesophageal reflux disease) K21.9
== END 2024-03-13 12:45 | disposition home or self-care (01) | DRG 190 ==
LOC: ER 22:26 → MEDSURG 22:33
PROVIDERS: Emergency Medicine; Admitting Provider Internal Medicine; Emergency Provider Physician Assistant; PCP Family Medicine; Visit Provider Internal Medicine
DX: J44.0 Chronic obstructive pulmonary disease with (acute) lower respiratory infection (principal); J18.9 Pneumonia, unspecified organism; J44.1 Chronic obstructive pulmonary disease with (acute) exacerbation; F31.75 Bipolar disorder, in partial remission, most recent episode depressed; I10 Essential (primary) hypertension; K21.9 Gastro-esophageal reflux disease without esophagitis; R06.89 Other abnormalities of breathing; R09.02 Hypoxemia; E78.5 Hyperlipidemia, unspecified; F17.290 Nicotine dependence, other tobacco product, uncomplicated; J43.9 Emphysema, unspecified; N32.81 Overactive bladder; Z79.82 Long term (current) use of aspirin
CPT/HCPCS: 0241U; 36415; 36600; 71045; 80048; 80051; 80053; 82330; 82805; 83036; 83735; 83880; 84145; 85025; 86140; 87070; 87077; 87186; 87205; 93005; 94640; 94760; 96372; G0378; J0456; J0696; J1100; J1650; J2919; J7050

== ENCOUNTER 2024-06-23 07:18 | Outpatient (CLI) | payer BC, SELFPAY ==
--- NOTE | 2024-06-23 07:32 | USCV_ITS ---
Cornelia William Age: 49 Gender: F : 1975 Exam Date: 06/23/2024 07:46 Ordering Phys: Marcelo Carmona M.D ([email or web address]) Technologist: Exam Location: [facility] – [place] Indication: chest pain murmur BP: 130 / 100 HR: 79 Rhythm: Sinus Technical Quality: MEASUREMENTS (Male / Female) Normal Values 2D ECHO LV Diastolic Diameter PLAX 4.5 cm 4.2 - 5.9 / 3.9 - 5.3 cm IVS Diastolic Thickness 1.1 cm 0.6 - 1.0 / 0.6 - 0.9 cm IVS Systolic Thickness 1.8 cm LVPW Diastolic Thickness 1.3 cm 0.6 - 1.0 / 0.6 - 0.9 cm LVPW Systolic Thickness 1.5 cm LVOT Diameter 1.9 cm LV Ejection Fraction 2D Teich 64.3 % LV Ejection Fraction MOD 4C 72.1 % LV Ejection Fraction MOD 2C 74.5 % LV Ejection Fraction 2C AL 75.3 % LA Diameter 3.1 cm RA Systolic Volume 4C AL 29.9 ml RA Systolic Volume 4C MOD 29.9 ml Aorta at Sinotubular Diameter 2.7 cm M-MODE LA Ao Ratio MM 1.3 AV Cusp Separation MM 1.8 cm DOPPLER AV Peak Velocity 129.0 cm/s LVOT Peak Velocity 107.0 cm/s AV Area Cont Eq vti 3.3 cm squared AV Area Cont Eq pk 2.4 cm squared MV Peak Velocity 97.0 cm/s MV Area PHT 4.6 cm squared Mitral E to A Ratio 1.0 TV Peak Velocity 109.0 cm/s TR Peak Velocity 126.0 cm/s TR Peak Gradient 6.4 mmHg TV Peak E Velocity 94.0 cm/s PV Peak Velocity 120.0 cm/s FINDINGS Left Ventricle Normal left ventricular size, systolic function and wall thickness, with no regional wall motion abnormalities. Normal left ventricular wall thickness. Normal diastolic filling pattern. Left ventricular ejection fraction is estimated at 60 %. Right Ventricle The right ventricle is normal in size and function. Right Atrium The right atrium is normal in size. Left Atrium The left atrium is normal in size. Mitral Valve Mildly thickened mitral valve. No mitral valve stenosis. Mild mitral valve regurgitation. Aortic Valve Structurally normal aortic valve without significant sclerosis or stenosis. There is no aortic regurgitation. Tricuspid Valve Structurally normal tricuspid valve without significant stenosis or regurgitation. Pulmonary artery systolic pressure is normal. Pulmonic Valve Structurally normal pulmonic valve without significant stenosis. There is no pulmonic regurgitation. Pericardium Normal pericardium without effusion. Aorta Normal ascending aorta dimension. IVC The inferior vena cava appears normal. CONCLUSIONS Nakia Cortés MD (Electronically Signed) Final Date: 24 June 2024 19:14 S
== END 2024-06-23 07:19 | disposition home or self-care (01) ==
PROVIDERS: PCP Family Medicine; Visit Provider Internal Medicine
DX: R06.02 Shortness of breath (principal); R07.9 Chest pain, unspecified; R01.1 Cardiac murmur, unspecified; I34.0 Nonrheumatic mitral (valve) insufficiency
CPT/HCPCS: 93306

== ENCOUNTER → 2024-10-28 15:18 | Outpatient (BNVA) | payer MEDICARE, SELFPAY | PROVIDERS: PCP Family Medicine; Visit Provider Internal Medicine | DX: J44.9 Chronic obstructive pulmonary disease, unspecified (principal); I10 Essential (primary) hypertension; E78.5 Hyperlipidemia, unspecified; K21.9 Gastro-esophageal reflux disease without esophagitis; E03.9 Hypothyroidism, unspecified; E66.9 Obesity, unspecified; Z68.41 Body mass index [BMI] 40.0-44.9, adult; Z79.82 Long term (current) use of aspirin; F17.290 Nicotine dependence, other tobacco product, uncomplicated | CPT/HCPCS: 99214 ==